=== PATIENT | female | born 1945 | race Caucasian/White ===

== ENCOUNTER 2018-01-15 07:36 | Emergency (ER) | payer MEDICARE ==
--- OUTSIDE RECORDS SUMMARY | 2018-01-15 07:46 | XMS REPORT | Continuity of Care Document ---
:1945 External Reference #:[id number] Author Name Kostas Batista M.D. Address [address] [place] [address] Care Team Providers Name Role Phone Kostas Batista M.D. 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 Payers Type Date Identification Numbers Payment Provider Subscriber Policy Number: [id number] [facility] Medicare Eve Buckley PayID: [id number] [address] [address] [place] [address] Expires: 2015 Policy Number: [id number] Medicaid After Medicare Eve Buckley Group Name: 2 1 [id number] [facility] PayID: [id number] [place] [address] Advance Directives Description No Information Available Problems Description No Active Problems Family History Date Family Member(s) Problem(s) Comments Father Age is Unknown Father Unknown Mother due to Colon Cancer () - AT AGE 41 First Son 48 First Son Throat Cancer Second Son 47 Second Son No Current Problems Third Son 44 Third Son No Current Problems First Daughter 45 First Daughter Diabetes Mellitus Type 1 First Brother due to Liver Disease () - AND LUPUS - AGE 39 First Sister due to Cervical Cancer () - AGE 42 Second Sister 48 Third Sister 52 Social History Type Date Description Comments Sex Unknown Marital Status Legal Status: ETOH Use Denies alcohol use Tobacco Use Start: Unknown Patient is a current smoker, smokes 1 PACK A DAY every day Smoking Status Reviewed: 01/10/18 Patient is a current smoker, smokes 1 PACK A DAY every day Allergies, Adverse Reactions, Alerts Date Description Reaction Status Severity Comments 03/18/2015 NKDA Active 03/18/2015 Z Packs Active Medications Medication Date Status Form Strength Qnty SIG Indications Ordering Provider Miralax 06/30/19 Active Powder 3350NF 1020unit 1-2 caps K59.00 Lester, Ahmad 18 s by mouth M., M.D. every day Lipitor 05/27/19 Active Tablets 10mg 30tabs 1 by mouth E78.2 Lester, Ahmad 18 every day M., M.D. Ibuprofen 10/22/19 Active Tablets 600mg 90tabs take 1 M25.529 Lester, Ahmad 17 tablet by M., M.D. mouth every 8 hours as needed for pain M79.606 M25.569 Hydrocodone-Acetaminophen 08/13/2016 Active Tablets 5-325mg 60tabs 1 tab M25.529 Lester, by Ahmad mouth M., three M.D. times a day M79.606 M25.569 Betamethasone 03/12/2016 Active Cream 0.05% 45gm apply to L20.9 Lester, Dipropionate affected Ahmad area three M., M.D. times a day as needed Albuterol 05/06/2015 Active Nebulizer (2.5mg/3 375ml use with R06.02 Lester, Sulfate ML) nebulizer q4 Ahmad 0.083% hours as M., M.D. needed for cough/sob J44.9 R05 Maxalt 03/18/2015 Active Tablets 10mg 14tabs 1 tab by G43.119 Elster, Ahmad mouth twice a M., M.D. day as needed Doxepin HCL Active Capsules 25mg 180caps 2 cap by G47.00 Lester, Ahmad mouth every M., M.D. day F41.9 F33.[address] 40mg 90caps 1 by mouth Lester, every day Ahmad M., M.D. Bisoprolol Active Tablets 5-6.25mg 90tabs 1 tab by I10 Lester , Fumarate/Hydroc mouth Ahmad M., hlorothiazide every day M.D. Proair HFA Active Aerosol 108(90Bas 25.5gm inhale 2 J44. gideon Batista) puffs by 9 Ahmad M., mcg/Act mouth M.D. every 4 hours if needed R06.02 Keflex Hx Capsules 500mg 30caps 1 by mouth L03.11 Lester 018 - three times a 3 Ahmad M., day M.D. 018 Levofloxacin Hx Tablets 750mg 10tabs 1 by mouth E11.65 Lester 018 - every day Ahmad M., M.D. 018 Prednisone Hx Tablets 20mg 20tabs 2 tab by E11.65 Giselle Batista - mouth daily 4 Ahmad M., days,30x3d,20 M.D. 018 x2d,10x7d Azithromycin Hx Tablets 500mg 7tabs 1 by mouth E11.65 Lester 018 - every day Ahmad M., M.D. 018 Prednisone Hx Tablets 20mg 20tabs 2 tab by E11.65 Lester 018 - mouth daily 4 Ahmad M., days,30x3d,20 M.D. 018 x2d,10x7d Diclofenac Sodium Hx Gel 1% 100gm apply 4 gm to M54.2 Giselle Batista - neck three Ahmad M., 06/09/ times a day M.D. 018 as needed Fentanyl Hx Patches 72HR 25mcg/H 10units 1 patch to M25.56 Gui Batista - R skin every 72 9 Ahmad M., hours M.D. 017 M79.606 M25.512 Gabapentin 08/19/2016 - Hx Capsules 300mg 90caps 1 cap by M25.529 Lester , Ahmad 02/09/2017 mouth every M., M.D. night And 1 bid prn M25.569 M79.606 Prednisone 08/13/2016 - Hx Tablets 20mg 18tabs 3 tab by M25.529 [facility], [facility] daily M., M.D. 3 days, then 2 tab daily x 3 d , then 1 tab daily 3d M79.606 M25.569 Ibuprofen 08/13/2016 - Hx Tablets 200mg 2-4 tab by M25.529 Lester, mad 10/21/2016 mouth every 6 M., M.D. hours as needed M79.606 M25.569 Prednisone 05/18/2016 Hx Tablets 20mg 20tabs 2 tab by mouth daily 4 E11.65 Lester, - days,30x3d,20x2d,10x7d [facility] 06/[facility]2016 Elaina Coffman. Cipro 05/18/2016 Hx Tablets 500mg 30tabs 1 tab by mouth twice a E11.65 Lester, - day mad 06/02/2016 Elaina Coffman. Azithromycin 04/12/2016 Hx Tablets 250mg 6tabs take two tablets by J01.80 Lester, - mouth as one dose [facility] 08[facility]2016 the first day then take M., one daily thereafter x M.D. 4 days Prednisone 04/12/2016 Hx Tablets 10mg 18tabs tab one by mouth three R06.2 Lester, - times a day x 3 days; Ahmad 08/09/2016 tab one by mouth twice M., a day x 3 days; tab one M.D. by mouth every day x 3 days Diflucan 04/12/2016 Hx Tablets 100mg 10tabs 1 by mouth every day x J01.80 Lester, - 10 days [facility]2016 Elaina Coffman. Fluconazole 03/12/2016 Hx Tablets 100mg 20tabs 1 by mouth twice a day B37.0 Lester, - Ahmad 03/22/2016 Elaina Coffman. Cipro 03/02/2016 Hx Tablets 500mg 20tabs 1 tab by mouth twice a E11.65 Lester, - day Ahmad 03/03/2016 Elaina Coffman. Prednisone 02/27/2016 Hx Tablets 20mg 20tabs 2 tab by mouth daily 4 E11.65 Lester, - days,30x3d,20x2d,10x7d Ahmad 03/10/2016 Abril Coffman Augmentin 02/27/2016 Hx Tablets 875-1 20tabs 1 tab by mouth twice a E11.65 Lesetr, - 25mg day Ahmad 03/02/2016 Abril Coffman Dicyclomine 02/27/2016 Hx Capsules 10mg 1 cap by mouth every K51.918 Lester, HCL - day-By GI Kostas 02/09/2017 Abril Coffman K59.00 Asacol HD 10/23/2015 - Hx Tablets DR 800mg 180tabs 1 tab by K58.0 Lester , Kostas 12/30/2015 mouth twice Abril Coffman a day K51.918 Fluconazole 05/12/2015 - Hx Tablets 100mg 14tabs 1 by mouth B37.0 Lester , 08/10/2015 twice a day Kostas Coffman M.D. Augmentin 05/06/2015 - Hx Tablets 875-125m 20tabs 1 tab by mouth E11.65 Lester, 05/15/2015 g twice a day Kostas Coffman M.D. Rocephin 05/06/2015 - Hx Solution 1gm 1 gm mixed with E11.65 Lester, 05/07/2015 Rec 2 cubic Yuemaasya centimeters Abril Coffman lidocaine give intramuscular to l deltoid Solu-Medrol 05/06/2015 - Hx Solution 125mg 1units given iv E11.65 Lester , 05/07/2015 Rec Kostas Coffman M.D. Percocet 05/06/2015 - Hx Tablets 5-325mg 120tabs 1-2 tab by R05 Lester, 08/09/2016 mouth every 4 Ahmad hours as needed Abril Coffman M25.531 M25.512 Doxycycline 04/24/2015 - Hx Capsules 100mg 20caps take 1 Lester Hyclate 04/24/2015 capsule MD Kostas twice a day Doxycycline 04/24/2015 - Hx Capsules 100mg 20caps 1 cap by Lester Hyclate 05/04/2015 mouth twice Juand MBernardino, a day M.D. Prednisone 04/24/2015 - Hx Tablets 20mg 20tabs 2 tab by R06. Lester, 05/19/2015 mouth daily 02 Kostas Coffman, 4 M.D. days,30x3d, 20x2d,10x7d Advair Diskus 04/10/2015 - Hx Aerosol 250-50mcg 60units 1 by mouth J44. [facility], 10/12/2015 /Dose twice a day 9 Kostas Coffman M.D. Fluconazole 04/10/2015 - Hx Tablets 100mg 14tabs 1 by mouth B37. [facility], 04/16/2015 twice a day 0 Kostas Coffman M.D. Tramadol HCL 04/01/2015 - Hx Tablets 50mg 60tabs 1 by mouth M25. Lester, 05/06/2015 every 4 522 Kostas Coffman, hours as M.D. needed M25.531 M25.512 Amoxicillin 04/01/2015 - Hx Tablets 500mg 40tabs 2 by mouth Kostas Batista 04/11/2015 twice a day Abril Coffman Prednisone 04/01/2015 - Hx Tablets 20mg 20tabs 2 tab by [facility]ester, [facility] mouth daily Abril Coffman 4 days,30x3d, 20x2d,10x7d Asacol HD - Hx Tablets DR 800mg Unknown 03/11/2015 Asacol HD - Hx Tablets DR 800mg 180tabs 1 tab by I10 Kostas Batista, 10/23/2015 mouth twice MD a day K30 K58.0 Doxepin HCL - Hx Capsules 25mg Unknown 03/11/2015 Proair HFA - Hx Aerosol 108(90Ba Unknown 03/11/2015 se) mcg/Act Bisoprolol - Hx Tablets 5-6.25mg Unknown Fumarate/Hydrochl 03/11/2015 orothiazide Ondansetron - Hx Tablets 8mg dissolve 1 Unknown 03/11/2015 Dispers tablet On Tongue if needed for nausea -To Take Before Colon Ondansetron - Hx Tablets 8mg Unknown 03/11/2015 Dispers Omeprazole - Hx Capsules DR 40mg Unknown 03/11/2015 Doxycycline - Hx Capsules 100mg take 1 Unknown Hyclate 03/11/2015 capsule twice a day Doxycycline - Hx Capsules 100mg Unknown Hyclate 03/11/2015 Mupirocin - Hx Ointment 2% apply three Unknown 03/11/2015 times a day for 1 week Mupirocin - Hx Ointment 2% Unknown 03/11/2015 Fluorouracil - Hx Cream 5% Unknown 03/11/2015 Fluorouracil - Hx Cream 5% apply Small Unknown 03/11/2015 Amount To Left Hand twice a day for 4 Weeks. Wash Off In T Amoxicillin/Clavu - Hx Tablets 875-125m take 1 Unknown lanate Potassium 03/11/2015 g tablet by mouth twice a day for 10 days Amoxicillin/Clavu - Hx Tablets 875-125m Unknown lanate Potassium 03/11/2015 g Cephalexin - Hx Capsules 500mg Unknown 03/11/2015 Cephalexin - Hx Capsules 500mg take 1 Unknown 03/11/2015 capsule three times a day Ondansetron - Hx Tablets 4mg dissolve 1 Unknown 03/11/2015 Dispers tablet On Tongue every 8 hours if needed for vomiting Ondansetron - Hx Tablets 4mg Unknown 03/11/2015 Dispers Tramadol HCL - Hx Tablets 50mg take 1 Unknown 03/11/2015 tablet every 4 to 6 hours if needed for pain Tramadol HCL - Hx Tablets 50mg Unknown 03/11/2015 Hydrocodone-Aceta - Hx Tablets 5-325mg Unknown minophen 03/11/2015 Hydrocodone-Aceta - Hx Tablets 5-325mg 120t take 1 M25. Lester, minophen 04/01/2015 abs tablet every 522 Ahmad M., 6 hours if M.D. needed for pain M25.531 M25.512 Clotrimazole/Betamethasone - Hx Cream 1-0.05% apply twice Unknown Dipropionate 03/11/2015 a day to Affected Skin Clotrimazole/Betamethasone - Hx Cream 1-0.05% Unknown Dipropionate 03/11/2015 Clobetasol Propionate - Hx Ointment 0.05% Unknown 03/11/2015 Clobetasol Propionate - Hx Ointment 0.05% apply twice Unknown 03/11/2015 a day for 2 Weeks Then Take A Break Immunizations CPT Code Status Date Vaccine Lot # [id number] Given 01/10/2018 Flu Vaccine 3+Yrs Old(Fluzone) [id number] Q2038 Given 12/23/2016 Flu Vaccine 3+Yrs Old(Fluzone) [id number] [id number] Given 12/23/2016 Pneumococcal Conjugate Vaccine 13 Valent For [id number] Intramuscular Use Q2038 Given 03/25/2015 Flu Vaccine 3+Yrs Old(Fluzone) 33485 Given 03/25/2015 Flu Vaccine [id number] Given 01/28/2014 Pneumovax Vital Signs Date Vital Result Comment 01/10/2018 2:04pm BP Systolic 128 mmHg BP Diastolic 62 mmHg Height 63 inches 5'3" Weight 127.00 lb BMI (Body Mass Index) 22.5 kg/m2 Heart Rate 77 /min Respiratory Rate 14 /min 12/06/2017 1:06pm BP Systolic 124 mmHg BP Diastolic 62 mmHg Height 63 inches 5'3" Weight 126.00 lb BMI (Body Mass Index) 22.3 kg/m2 Heart Rate 70 /min Respiratory Rate 16 /min 12/01/2017 1:06pm BP Systolic 128 mmHg BP Diastolic 78 mmHg Height 63 inches 5'3" Weight 128.00 lb BMI (Body Mass Index) 22.7 kg/m2 Respiratory Rate 14 /min 09/15/2017 4:47pm BP Systolic 134 mmHg BP Diastolic 82 mmHg Height 63 inches 5'3" Weight 132.00 lb BMI (Body Mass Index) 23.4 kg/m2 Heart Rate 74 /min Respiratory Rate 18 /min 07/18/2017 9:24am BP Systolic 130 mmHg BP Diastolic 78 mmHg Height 63 inches 5'3" Weight 130.00 lb BMI (Body Mass Index) 23.0 kg/m2 Heart Rate 76 /min Respiratory Rate 18 /min 06/29/2017 10:13am BP Systolic 118 mmHg BP Diastolic 70 mmHg Height 63 inches 5'3" Weight 130.00 lb BMI (Body Mass Index) 23.0 kg/m2 Heart Rate 65 /min Body Temperature 96.7 F Respiratory Rate 18 /min 06/21/2017 12:59pm BP Systolic 140 mmHg BP Diastolic 68 mmHg Height 63 inches 5'3" Weight 128.00 lb BMI (Body Mass Index) 22.7 kg/m2 Heart Rate 72 /min Respiratory Rate 18 /min 05/27/2017 9:59am BP Systolic 132 mmHg BP Diastolic 80 mmHg Height 63 inches 5'3" Weight 128.00 lb BMI (Body Mass Index) 22.7 kg/m2 Heart Rate 73 /min Respiratory Rate 18 /min 05/18/2017 8:53am BP Systolic 134 mmHg BP Diastolic 62 mmHg Height 63 inches 5'3" Weight 128.00 lb BMI (Body Mass Index) 22.7 kg/m2 Heart Rate 62 /min Respiratory Rate 18 /min 05/10/2017 11:02am BP Systolic 142 mmHg BP Diastolic 80 mmHg Height 63 inches 5'3" Weight 127.00 lb BMI (Body Mass Index) 22.5 kg/m2 Heart Rate 76 /min Body Temperature 96.9 F Respiratory Rate 18 /min 04/19/2017 9:05am BP Systolic 126 mmHg BP Diastolic 68 mmHg Height 63 inches 5'3" Weight 124.00 lb BMI (Body Mass Index) 22.0 kg/m2 Heart Rate 82 /min Respiratory Rate 18 /min 03/10/2017 2:30pm BP Systolic 116 mmHg BP Diastolic 62 mmHg Height 63 inches 5'3" Weight 127.00 lb BMI (Body Mass Index) 22.5 kg/m2 Heart Rate 83 /min Respiratory Rate 18 /min 02/25/2017 8:30am BP Systolic 130 mmHg BP Diastolic 72 mmHg Height 63 inches 5'3" Weight 125.00 lb BMI (Body Mass Index) 22.1 kg/m2 Heart Rate 81 /min Respiratory Rate 16 /min 02/22/2017 3:15pm BP Systolic 130 mmHg BP Diastolic 70 mmHg Height 63 inches 5'3" Weight 128.00 lb BMI (Body Mass Index) 22.7 kg/m2 Heart Rate 71 /min Respiratory Rate 16 /min 12/23/2016 10:51am BP Systolic 126 mmHg BP Diastolic 68 mmHg Height 63 inches 5'3" Weight 133.00 lb BMI (Body Mass Index) 23.6 kg/m2 Heart Rate 71 /min Respiratory Rate 16 /min 10/21/2016 2:06pm BP Systolic 132 mmHg BP Diastolic 68 mmHg Height 63 inches 5'3" Weight 133.00 lb BMI (Body Mass Index) 23.6 kg/m2 Heart Rate 72 /min Respiratory Rate 16 /min 08/24/2016 8:45am BP Systolic 122 mmHg BP Diastolic 64 mmHg Height 63 inches 5'3" Weight 137.00 lb BMI (Body Mass Index) 24.3 kg/m2 Heart Rate 78 /min Respiratory Rate 16 /min 08/20/2016 9:10am BP Systolic 108 mmHg BP Diastolic 60 mmHg Height 63 inches 5'3" Weight 135.00 lb BMI (Body Mass Index) 23.9 kg/m2 Heart Rate 62 /min Respiratory Rate 16 /min 08/19/2016 9:14am BP Systolic 142 mmHg BP Diastolic 72 mmHg Height 63 inches 5'3" Weight 135.00 lb BMI (Body Mass Index) 23.9 kg/m2 Heart Rate 56 /min Respiratory Rate 16 /min 08/13/2016 9:24am BP Systolic 140 mmHg BP Diastolic 80 mmHg Height 63 inches 5'3" Weight 137.00 lb BMI (Body Mass Index) 24.3 kg/m2 Heart Rate 74 /min 05/18/2016 11:13am BP Systolic 132 mmHg BP Diastolic 88 mmHg Height 63 inches 5'3" Weight 132.00 lb BMI (Body Mass Index) 23.4 kg/m2 Heart Rate 95 /min Respiratory Rate 16 /min 04/12/2016 9:45am BP Systolic 138 mmHg BP Diastolic 70 mmHg Height 63 inches 5'3" Weight 132.00 lb BMI (Body Mass Index) 23.4 kg/m2 Heart Rate 83 /min Respiratory Rate 18 /min 03/16/2016 1:43pm BP Systolic 102 mmHg BP Diastolic 68 mmHg Height 63 inches 5'3" Weight 131.00 lb BMI (Body Mass Index) 23.2 kg/m2 Heart Rate 91 /min Respiratory Rate 18 /min 03/12/2016 2:18pm BP Systolic 128 mmHg BP Diastolic 58 mmHg Height 63 inches 5'3" Weight 133.00 lb BMI (Body Mass Index) 23.6 kg/m2 Heart Rate 80 /min Respiratory Rate 18 /min 02/27/2016 4:09pm BP Systolic 122 mmHg BP Diastolic 68 mmHg Height 63 inches 5'3" Weight 132.00 lb BMI (Body Mass Index) 23.4 kg/m2 Heart Rate 74 /min Respiratory Rate 18 /min 01/02/2016 3:24pm BP Systolic 118 mmHg BP Diastolic 70 mmHg Height 63 inches 5'3" Weight 135.00 lb BMI (Body Mass Index) 23.9 kg/m2 Heart Rate 58 /min Respiratory Rate 18 /min 12/05/2015 8:41am BP Systolic 106 mmHg BP Diastolic 62 mmHg Height 63 inches 5'3" Weight 132.00 lb BMI (Body Mass Index) 23.4 kg/m2 Heart Rate 78 /min Respiratory Rate 18 /min 10/23/2015 3:27pm BP Systolic 120 mmHg BP Diastolic 60 mmHg Height 63 inches 5'3" Weight 143.00 lb BMI (Body Mass Index) 25.3 kg/m2 Heart Rate 78 /min Respiratory Rate 19 /min 08/13/2015 2:48pm BP Systolic 127 mmHg BP Diastolic 70 mmHg Height 63 inches 5'3" Weight 144.00 lb BMI (Body Mass Index) 25.5 kg/m2 Heart Rate 86 /min Respiratory Rate 18 /min 05/19/2015 10:51am BP Systolic 118 mmHg BP Diastolic 79 mmHg Height 63 inches 5'3" Weight 141.00 lb BMI (Body Mass Index) 25.0 kg/m2 Heart Rate 92 /min Respiratory Rate 18 /min 05/06/2015 2:34pm BP Systolic 150 mmHg BP Diastolic 79 mmHg Height 63 inches 5'3" Weight 144.00 lb BMI (Body Mass Index) 25.5 kg/m2 Heart Rate 90 /min Body Temperature 97.0 F Respiratory Rate 18 /min 04/24/2015 9:27am BP Systolic 121 mmHg BP Diastolic 80 mmHg Height 63 inches 5'3" Weight 143.00 lb BMI (Body Mass Index) 25.3 kg/m2 Heart Rate 79 /min Body Temperature 96.1 F Respiratory Rate 18 /min 04/10/2015 11:43am BP Systolic 128 mmHg BP Diastolic 76 mmHg Height 63 inches 5'3" Weight 140.00 lb BMI (Body Mass Index) 24.8 kg/m2 Heart Rate 64 /min Body Temperature 97.0 F Respiratory Rate 18 /min 04/01/2015 9:11am BP Systolic 105 mmHg BP Diastolic 64 mmHg Height 63 inches 5'3" Weight 139.00 lb BMI (Body Mass Index) 24.6 kg/m2 Heart Rate 75 /min Body Temperature 97.1 F Respiratory Rate 20 /min 03/25/2015 9:01am BP Systolic 121 mmHg BP Diastolic 71 mmHg Height 63 inches 5'3" Weight 139.00 lb BMI (Body Mass Index) 24.6 kg/m2 Heart Rate 73 /min Respiratory Rate 18 /min 03/18/2015 2:51pm BP Systolic 129 mmHg BP Diastolic 75 mmHg Height 63 inches 5'3" Weight 141.00 lb BMI (Body Mass Index) 25.0 kg/m2 Heart Rate 85 /min Body Temperature 96.6 F Respiratory Rate 18 /min Results Test Date Facility Test Result H/L Range Note Basic Metabolic Panel 06/14/2017 [facility] Glucose 150 mg/dL High 74-106 1 BUN 9 mg/dL 7-18 Creatinine 0.9 mg/dL 0.6-1.3 Glom Filtration Rate, Estimate >60 mL/min >60 If >60 mL/min >60 2 BUN/Creat 10.0 ratio Sodium 146 mmol/L High 136-145 Potassium 3.6 mmol/L 3.5-5.1 Chloride 119 mmol/L High 98-107 Carbon Dioxide 17 mmol/L Low 21-32 Anion Gap 10 mEq/L 8-16 Calcium 8.0 mg/dL Low 8.5-10.1 CBS W/Automated Diff 06/14/2017 [facility] White Blood Count 13.0 K/uL High 3.1-10.7 Red Blood Count 3.97 M/uL 3.90-5.40 Hemoglobin 12.3 gm/dL 11.6-15.8 Hematocrit 36.2 % 36.0-46.1 Mean Cell Volume 90.2 fl 80.9-99.0 Mean Corpuscular HGB 31.0 pg 25.9-32.7 Mean Corpuscular HGB Conc 34.4 g/dL High 30.8-34.3 Platelet Count 141 K/uL Low 155-360 Red Cell Distri Width SD 42.1 fl 3-47 Red Cell Distri Width %CV 13.0 % 11.7-14.4 Mean Platelet Volume 11.8 fL 8.9-12.4 Neut% 90.2 % High 40.4-72.8 Lymph % 7.8 % Low 20.0-42.0 Loup % 2.0 % Low 4.3-13.2 Eo% 0.0 % 0.0-6.6 Bas% 0.0 % 0.0-1.1 Neut# 11.68 K/uL High 1.8-7.0 Lymph # 1.01 K/uL 1.0-4.0 Loup # 0.26 K/uL Low 0.3-0.9 Eos # 0.00 K/uL 0.0-0.5 Baso # 0.00 K/uL 0.0-0.1 Basic Metabolic Panel 06/14/2017 [facility] Glucose 126 mg/dL High 74-106 BUN 9 mg/dL 7-18 Creatinine 0.7 mg/dL 0.6-1.3 Glom Filtration Rate, Estimate >60 mL/min >60 If >60 mL/min >60 3 BUN/Creat 12.8 ratio Sodium 144 mmol/L 136-145 Potassium 4.0 mmol/L 3.5-5.1 Chloride 117 mmol/L High 98-107 Carbon Dioxide 19 mmol/L Low 21-32 Anion Gap 8 mEq/L 8-16 Calcium 8.0 mg/dL Low 8.5-10.1 Blood Culture 06/13/2017 [facility] Blood Culture Aerobic NO GROWTH: FINAL < SEE 4 NOTE> Blood Culture Anaerobic NO GROWTH: FINAL <SEE NOTE> 5 Lactic Acid 06/13/2017 [facility] Lactic Acid 2.6 mmol/L High 0.4-1.9 6 Lab Reflex >2.0 for Sepsis? Y Influenza A/B 06/13/2017 [facility] Influenza A Antigen Negative (Negative ) Antigen Influenza B Antigen Negative (Negative) 7 Blood Culture 06/13/2017 [facility] Blood Culture Aerobic NO GROWTH: FINAL < SEE 8, 9 NOTE> Blood Culture Anaerobic NO GROWTH: FINAL <SEE NOTE> 10 Streptococcus Pneumoniae Ag,Ur 06/13/2017 [facility] Specimen Source Urine . Streptococcus Pneumoniae Ag,Ur NEGATIVE Negative Body Fluid Culture, Sterile Not Indicated . Organism Id Not indicated. . Please Note: (SEE NOTE) 11 Urine Culture 06/13/2017 [facility] Urine Culture MIXED URETHRAL F <SEE NOTE > 12 Quantity 10,000 - 50,000 <SEE NOTE> 13 Laboratory test 06/13/2017 [facility] Legionella Negative Negative 14 finding Urinary Antigen Legionella 06/13/2017 [facility] Legionella No Legionella sp 15 Culture Culture <SEE NOTE> Laboratory test 06/13/2017 [facility] Lactic Acid 4.3 mmol/L High 0.4-1.9 16 finding Lactic Acid 06/13/2017 [facility] Lactic Acid 4.2 mmol/L High 0.4-1.9 Lab Reflex >2.0 for Sepsis? Y Laboratory test finding 06/13/2017 [facility] Lactic Acid 3.9 mmol/L High 0.4-1.9 Lactic Acid 06/13/2017 [facility] Lactic Acid 1.2 mmol/L 0.4-1.9 Lab Reflex >2.0 for Sepsis? Y Laboratory test 05/18/2017 [facility] Erythrocyte Sed Rate 4 mm/Hr 0 -40 17 finding Vitamin D Total 25(Oh) 34.5 ng/mL 20-50 18 Lipid Profile 05/18/2017 [facility] Triglycerides 168 mg/dL 19 (Trig/Chol/HDL) Cholesterol 239 mg/dL 20 HDL Cholesterol 50.0 mg/dL 21 LDL Cholesterol 155 mg/dL 22 Laboratory test 05/18/2017 [facility] Hemoglobin A1c 5.9 % High 4.0- 5.6 23 finding (Glyco HGB) TSH (Thyroid Stim Horm) 0.64 mcIU/mL 0.34-5.60 24 Comp Metabolic Panel 05/18/2017 [facility] Sodium 138 mmol/L 133- 145 Potassium 3.9 mmol/L 3.5-5.0 Chloride 103 mmol/L 101-111 Co2 Carbon Dioxide 29 mmol/L 22-32 Anion Gap 6 mmol/L 2-11 Glucose 76 mg/dL 70-100 Blood Urea Nitrogen 16 mg/dL 6-24 Creatinine 1.21 mg/dL High 0.51-0.95 BUN/Creatinine Ratio 13.2 8-20 Calcium 9.5 mg/dL 8.6-10.3 Total Protein 6.4 g/dL 6.4-8.9 Albumin 4.1 g/dL 3.2-5.2 Globulin 2.3 g/dL 2-4 Albumin/Globulin Ratio 1.8 1-3 Total Bilirubin 0.60 mg/dL 0.2-1.0 Alkaline Phosphatase 63 U/L 34-104 Alt 15 U/L 7-52 Ast 13 U/L 13-39 Egfr Non- 44.1 >60 Egfr 56.7 >60 25 CBC Auto Diff 05/18/2017 [facility] White Blood 14.7 10^3/uL High 3.5 -10.8 Count Red Blood Count 4.80 10^6/uL 4.0-5.4 Hemoglobin 14.6 g/dL 12.0-16.0 Hematocrit 44 % 35-47 Mean Corpuscular Volume 93 fL 80-97 Mean Corpuscular Hemoglobin 31 pg 27-31 Mean Corpuscular HGB Conc 33 g/dL 31-36 Red Cell Distribution Width 14 % 10.5-15 Platelet Count 191 10^3/uL 150-450 Mean Platelet Volume 11 um3 High 7.4-10.4 Giant Platelets Present Abs Neutrophils 11.0 10^3/uL High 1.5-7.7 Abs Lymphocytes 2.7 10^3/uL 1.0-4.8 Abs Monocytes 0.8 10^3/uL 0-0.8 Abs Eosinophils 0 10^3/uL 0-0.6 Abs Basophils 0.1 10^3/uL 0-0.2 Abs Nucleated RBC 0 10^3/uL Granulocyte % 75.2 % 38-83 Lymphocyte % 18.5 % Low 25-47 Monocyte % 5.5 % 1-9 Eosinophil % 0.3 % 0-6 Basophil % 0.5 % 0-2 Nucleated Red Blood Cells % 0.1 CBC Auto Diff 02/25/2017 [facility] White Blood Count 7.5 10^3/uL 3.5-10.8 Red Blood Count 4.92 10^6/uL 4.0-5.4 Hemoglobin 14.8 g/dL 12.0-16.0 Hematocrit 45 % 35-47 Mean Corpuscular Volume 91 fL 80-97 Mean Corpuscular Hemoglobin 30 pg 27-31 Mean Corpuscular HGB Conc 33 g/dL 31-36 Red Cell Distribution Width 13 % 10.5-15 Platelet Count 200 10^3/uL 150-450 Mean Platelet Volume 11 um3 High 7.4-10.4 Abs Neutrophils 4.0 10^3/uL 1.5-7.7 Abs Lymphocytes 2.6 10^3/uL 1.0-4.8 Abs Monocytes 0.5 10^3/uL 0-0.8 Abs Eosinophils 0.3 10^3/uL 0-0.6 Abs Basophils 0.1 10^3/uL 0-0.2 Abs Nucleated RBC 0.01 10^3/uL Granulocyte % 53.2 % 38-83 Lymphocyte % 34.5 % 25-47 Monocyte % 6.9 % 1-9 Eosinophil % 3.6 % 0-6 Basophil % 1.8 % 0-2 Nucleated Red Blood Cells % 0.1 Comp Metabolic Panel 02/25/2017 [facility] Sodium 141 mmol/L 133- 145 Potassium 3.8 mmol/L 3.5-5.0 Chloride 109 mmol/L 101-111 Co2 Carbon Dioxide 25 mmol/L 22-32 Anion Gap 7 mmol/L 2-11 Glucose 84 mg/dL 70-100 Blood Urea Nitrogen 10 mg/dL 6-24 Creatinine 1.09 mg/dL High 0.51-0.95 BUN/Creatinine Ratio 9.2 8-20 Calcium 9.6 mg/dL 8.6-10.3 Total Protein 6.4 g/dL 6.4-8.9 Albumin 4.0 g/dL 3.2-5.2 Globulin 2.4 g/dL 2-4 Albumin/Globulin Ratio 1.7 1-3 Total Bilirubin 0.60 mg/dL 0.2-1.0 Alkaline Phosphatase 72 U/L 34-104 Alt 13 U/L 7-52 Ast 15 U/L 13-39 Egfr Non- 49.8 >60 Egfr 64.0 >60 26 Laboratory test 02/25/2017 [facility] Hemoglobin A1c 5.6 % 4.0-5.6 27 finding (Glyco HGB) TSH (Thyroid Stim Horm) 1.25 mcIU/mL 0.34-5.60 28 Lipid Profile 02/25/2017 [facility] Triglycerides 193 mg/dL 29 (Trig/Chol/HDL) Cholesterol 238 mg/dL 30 HDL Cholesterol 35.4 mg/dL 31 LDL Cholesterol 164 mg/dL 32 Laboratory test 02/25/2017 [facility] Vitamin D 29.3 ng/mL 20-50 33 finding Total 25(Oh) Marisol Chavis 08/20/2016 [facility] Ebv Capsid Ag Negative Negative Comprehensive IgG Ab Ebv Capsid Ag IgM Ab Negative Negative Marisol-Chavis Nuclear Antigen Positive Negative Marisol-Chavis Virus Interp See Comment 34 CBC Auto Diff 08/20/2016 [facility] White Blood 16.9 10^3/uL High 3.5 -10.8 Count Red Blood Count 4.90 10^6/uL 4.0-5.4 Hemoglobin 14.7 g/dL 12.0-16.0 Hematocrit 45 % 35-47 Mean Corpuscular Volume 92 fL 80-97 Mean Corpuscular Hemoglobin 30 pg 27-31 Mean Corpuscular HGB Conc 33 g/dL 31-36 Red Cell Distribution Width 13 % 10.5-15 Platelet Count 189 10^3/uL 150-450 Mean Platelet Volume 11 um3 High 7.4-10.4 Abs Neutrophils 10.1 10^3/uL High 1.5-7.7 Abs Lymphocytes 5.4 10^3/uL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 disease, unspecified K51.918 Ulcerative colitis, unspecified with other complication K30 Functional dyspepsia F33.9 Major depressive disorder, recurrent, unspecified K58.0 Irritable bowel syndrome with diarrhea G43.119 Migraine with aura, intractable, without status migrainosus F17.210 Nicotine dependence, cigarettes, uncomplicated H52.4 Presbyopia M25.512 Pain in left shoulder M25.522 Pain in left elbow M25.531 Pain in right wrist M79.645 Pain in left finger(s) M54.5 Low back pain L20.9 Atopic dermatitis, unspecified G47.00 Insomnia, unspecified F41.9 Anxiety disorder, unspecified H90.3 Sensorineural hearing loss, bilateral M25.551 Pain in right hip R05 Cough R09.81 Nasal congestion R06.02 Shortness of breath M79.606 Pain in leg, unspecified M25.569 Pain in unspecified knee K21.0 Gastro-esophageal reflux disease with esophagitis J30.9 Allergic rhinitis, unspecified M25.529 Pain in unspecified elbow R06.2 Wheezing R53.83 Other fatigue M45.0 Ankylosing spondylitis of multiple sites in spine M79.7 Fibromyalgia E55.9 Vitamin D deficiency, unspecified B07.9 Viral wart, unspecified M54.2 Cervicalgia R10.30 Lower abdominal pain, unspecified K59.00 Constipation, unspecified R11.0 Nausea H61.20 Impacted cerumen, unspecified ear Office Visit 06/29/2017 11:15a [facility] Kostas Batista [id number] Type 2 diabetes Abril Coffman mellitus with hyperglycemia I10 Essential (primary) hypertension E78.2 Mixed hyperlipidemia J44.9 Chronic obstructive pulmonary disease, unspecified K51.918 Ulcerative colitis, unspecified with other complication K30 Functional dyspepsia F33.9 Major depressive disorder, recurrent, unspecified K58.0 Irritable bowel syndrome with diarrhea G43.119 Migraine with aura, intractable, without status migrainosus F17.210 Nicotine dependence, cigarettes, uncomplicated H52.4 Presbyopia M25.512 Pain in left shoulder M25.522 Pain in left elbow M25.531 Pain in right wrist M79.645 Pain in left finger(s) M54.5 Low back pain L20.9 Atopic dermatitis, unspecified G47.00 Insomnia, unspecified F41.9 Anxiety disorder, unspecified H90.3 Sensorineural hearing loss, bilateral M25.551 Pain in right hip R05 Cough R09.81 Nasal congestion R06.02 Shortness of breath M79.606 Pain in leg, unspecified M25.569 Pain in unspecified knee K21.0 Gastro-esophageal reflux disease with esophagitis J30.9 Allergic rhinitis, unspecified M25.529 Pain in unspecified elbow R06.2 Wheezing R53.83 Other fatigue M45.0 Ankylosing spondylitis of multiple sites in spine M79.7 Fibromyalgia E55.9 Vitamin D deficiency, unspecified B07.9 Viral wart, unspecified M54.2 Cervicalgia R10.30 Lower abdominal pain, unspecified K59.00 Constipation, unspecified R11.0 Nausea J18.9 Pneumonia, unspecified organism Office Visit 06/21/2017 1:00p [facility] LesterKostas mariscal [id number] Type 2 diabetes Abril Coffman mellitus with hyperglycemia I10 Essential (primary) hypertension E78.2 Mixed hyperlipidemia J44.9 Chronic obstructive pulmonary disease, unspecified K51.918 Ulcerative colitis, unspecified with other complication K30 Functional dyspepsia F33.9 Major depressive disorder, recurrent, unspecified K58.0 Irritable bowel syndrome with diarrhea G43.119 Migraine with aura, intractable, without status migrainosus F17.210 Nicotine dependence, cigarettes, uncomplicated H52.4 Presbyopia M25.512 Pain in left shoulder M25.522 Pain in left elbow M25.531 Pain in right wrist M79.645 Pain in left finger(s) M54.5 Low back pain L20.9 Atopic dermatitis, unspecified G47.00 Insomnia, unspecified F41.9 Anxiety disorder, unspecified H90.3 Sensorineural hearing loss, bilateral M25.551 Pain in right hip R05 Cough R09.81 Nasal congestion R06.02 Shortness of breath M79.606 Pain in leg, unspecified M25.569 Pain in unspecified knee K21.0 Gastro-esophageal reflux disease with esophagitis J30.9 Allergic rhinitis, unspecified M25.529 Pain in unspecified elbow R06.2 Wheezing R53.83 Other fatigue M45.0 Ankylosing spondylitis of multiple sites in spine M79.7 Fibromyalgia E55.9 Vitamin D deficiency, unspecified B07.9 Viral wart, unspecified M54.2 Cervicalgia R10.30 Lower abdominal pain, unspecified K59.00 Constipation, unspecified R11.0 Nausea J18.9 Pneumonia, unspecified organism Office Visit 05/27/2017 10:00a [facility] LesterKostas mariscal [id number] Type 2 diabetes Abril Coffman mellitus with hyperglycemia I10 Essential (primary) hypertension E78.2 Mixed hyperlipidemia J44.9 Chronic obstructive pulmonary disease, unspecified K51.918 Ulcerative colitis, unspecified with other complication K30 Functional dyspepsia F33.9 Major depressive disorder, recurrent, unspecified K58.0 Irritable bowel syndrome with diarrhea G43.119 Migraine with aura, intractable, without status migrainosus F17.210 Nicotine dependence, cigarettes, uncomplicated H52.4 Presbyopia M25.512 Pain in left shoulder M25.522 Pain in left elbow M25.531 Pain in right wrist M79.645 Pain in left finger(s) M54.5 Low back pain L20.9 Atopic dermatitis, unspecified G47.00 Insomnia, unspecified F41.9 Anxiety disorder, unspecified H90.3 Sensorineural hearing loss, bilateral M25.551 Pain in right hip R05 Cough R09.81 Nasal congestion R06.02 Shortness of breath M79.606 Pain in leg, unspecified M25.569 Pain in unspecified knee K21.0 Gastro-esophageal reflux disease with esophagitis J30.9 Allergic rhinitis, unspecified M25.529 Pain in unspecified elbow R06.2 Wheezing R53.83 Other fatigue M45.0 Ankylosing spondylitis of multiple sites in spine M79.7 Fibromyalgia E55.9 Vitamin D deficiency, unspecified B07.9 Viral wart, unspecified M54.2 Cervicalgia R10.30 Lower abdominal pain, unspecified K59.00 Constipation, unspecified R11.0 Nausea Office Visit 05/18/2017 8:45a [facility] LesterKostas mariscal E11.65 Type 2 diabetes Abril Coffman mellitus with hyperglycemia I10 Essential (primary) hypertension E78.2 Mixed hyperlipidemia J44.9 Chronic obstructive pulmonary disease, unspecified K51.918 Ulcerative colitis, unspecified with other complication K30 Functional dyspepsia F33.9 Major depressive disorder, recurrent, unspecified K58.0 Irritable bowel syndrome with diarrhea G43.119 Migraine with aura, intractable, without status migrainosus F17.210 Nicotine dependence, cigarettes, uncomplicated H52.4 Presbyopia M25.512 Pain in left shoulder M25.522 Pain in left elbow M25.531 Pain in right wrist M79.645 Pain in left finger(s) M54.5 Low back pain L20.9 Atopic dermatitis, unspecified G47.00 Insomnia, unspecified F41.9 Anxiety disorder, unspecified H90.3 Sensorineural hearing loss, bilateral M25.551 Pain in right hip R05 Cough R09.81 Nasal congestion R06.02 Shortness of breath M79.606 Pain in leg, unspecified M25.569 Pain in unspecified knee K21.0 Gastro-esophageal reflux disease with esophagitis J30.9 Allergic rhinitis, unspecified M25.529 Pain in unspecified elbow R06.2 Wheezing R53.83 Other fatigue M45.0 Ankylosing spondylitis of multiple sites in spine M79.7 Fibromyalgia E55.9 Vitamin D deficiency, unspecified B07.9 Viral wart, unspecified M54.2 Cervicalgia R10.30 Lower abdominal pain, unspecified K59.00 Constipation, unspecified R11.0 Nausea J20.9 Acute bronchitis, unspecified J01.40 Acute pansinusitis, unspecified Office Visit 05/10/2017 11:15a [facility] Lester, Juanasya [id number] Type 2 diabetes Abril Coffman mellitus with hyperglycemia I10 Essential (primary) hypertension E78.2 Mixed hyperlipidemia J44.9 Chronic obstructive pulmonary disease, unspecified K51.918 Ulcerative colitis, unspecified with other complication K30 Functional dyspepsia F33.9 Major depressive disorder, recurrent, unspecified K58.0 Irritable bowel syndrome with diarrhea G43.119 Migraine with aura, intractable, without status migrainosus F17.210 Nicotine dependence, cigarettes, uncomplicated H52.4 Presbyopia M25.512 Pain in left shoulder M25.522 Pain in left elbow M25.531 Pain in right wrist M79.645 Pain in left finger(s) M54.5 Low back pain L20.9 Atopic dermatitis, unspecified G47.00 Insomnia, unspecified F41.9 Anxiety disorder, unspecified H90.3 Sensorineural hearing loss, bilateral M25.551 Pain in right hip R05 Cough R09.81 Nasal congestion R06.02 Shortness of breath M79.606 Pain in leg, unspecified M25.569 Pain in unspecified knee K21.0 Gastro-esophageal reflux disease with esophagitis J30.9 Allergic rhinitis, unspecified M25.529 Pain in unspecified elbow R06.2 Wheezing R53.83 Other fatigue M45.0 Ankylosing spondylitis of multiple sites in spine M79.7 Fibromyalgia E55.9 Vitamin D deficiency, unspecified B07.9 Viral wart, unspecified M54.2 Cervicalgia R10.30 Lower abdominal pain, unspecified K59.00 Constipation, unspecified R11.0 Nausea J20.9 Acute bronchitis, unspecified J01.40 Acute pansinusitis, unspecified Office Visit 04/19/2017 9:15a [facility] Kostas Batista [id number] Type 2 diabetes Abril Coffman mellitus with hyperglycemia I10 Essential (primary) hypertension E78.2 Mixed hyperlipidemia J44.9 Chronic obstructive pulmonary disease, unspecified K51.918 Ulcerative colitis, unspecified with other complication K30 Functional dyspepsia F33.9 Major depressive disorder, recurrent, unspecified K58.0 Irritable bowel syndrome with diarrhea G43.119 Migraine with aura, intractable, without status migrainosus F17.210 Nicotine dependence, cigarettes, uncomplicated H52.4 Presbyopia M25.512 Pain in left shoulder M25.522 Pain in left elbow M25.531 Pain in right wrist M79.645 Pain in left finger(s) M54.5 Low back pain L20.9 Atopic dermatitis, unspecified G47.00 Insomnia, unspecified F41.9 Anxiety disorder, unspecified H90.3 Sensorineural hearing loss, bilateral M25.551 Pain in right hip R05 Cough R09.81 Nasal congestion R06.02 Shortness of breath M79.606 Pain in leg, unspecified M25.569 Pain in unspecified knee K21.0 Gastro-esophageal reflux disease with esophagitis J30.9 Allergic rhinitis, unspecified M25.529 Pain in unspecified elbow R06.2 Wheezing R53.83 Other fatigue M45.0 Ankylosing spondylitis of multiple sites in spine M79.7 Fibromyalgia E55.9 Vitamin D deficiency, unspecified B07.9 Viral wart, unspecified M54.2 Cervicalgia R10.30 Lower abdominal pain, unspecified K59.00 Constipation, unspecified R11.0 Nausea Office Visit 03/10/2017 2:30p [facility] LesterKostas mariscal [id number] Type 2 diabetes Elaina Coffman. mellitus with hyperglycemia I10 Essential (primary) hypertension E78.2 Mixed hyperlipidemia J44.9 Chronic obstructive pulmonary disease, unspecified K51.918 Ulcerative colitis, unspecified with other complication K30 Functional dyspepsia F33.9 Major depressive disorder, recurrent, unspecified K58.0 Irritable bowel syndrome with diarrhea K59.00 Constipation, unspecified G43.119 Migraine with aura, intractable, without status migrainosus F17.210 Nicotine dependence, cigarettes, uncomplicated H52.4 Presbyopia M25.512 Pain in left shoulder M25.522 Pain in left elbow M25.531 Pain in right wrist M79.645 Pain in left finger(s) M54.5 Low back pain L20.9 Atopic dermatitis, unspecified G47.00 Insomnia, unspecified F41.9 Anxiety disorder, unspecified H90.3 Sensorineural hearing loss, bilateral M25.551 Pain in right hip R05 Cough R09.81 Nasal congestion R06.02 Shortness of breath M79.606 Pain in leg, unspecified M25.569 Pain in unspecified knee K21.0 Gastro-esophageal reflux disease with esophagitis J30.9 Allergic rhinitis, unspecified M25.529 Pain in unspecified elbow R06.2 Wheezing R53.83 Other fatigue M79.7 Fibromyalgia M45.0 Ankylosing spondylitis of multiple sites in spine E55.9 Vitamin D deficiency, unspecified B07.9 Viral wart, unspecified Office Visit 02/25/2017 8:30a [facility] Juan Batistaasya E11.65 Type 2 diabetes Abril Coffman mellitus with hyperglycemia I10 Essential (primary) hypertension E78.2 Mixed hyperlipidemia J44.9 Chronic obstructive pulmonary disease, unspecified K51.918 Ulcerative colitis, unspecified with other complication K30 Functional dyspepsia F33.9 Major depressive disorder, recurrent, unspecified K58.0 Irritable bowel syndrome with diarrhea K59.00 Constipation, unspecified G43.119 Migraine with aura, intractable, without status migrainosus F17.210 Nicotine dependence, cigarettes, uncomplicated H52.4 Presbyopia M25.512 Pain in left shoulder M25.522 Pain in left elbow M25.531 Pain in right wrist M79.645 Pain in left finger(s) M54.5 Low back pain L20.9 Atopic dermatitis, unspecified G47.00 Insomnia, unspecified F41.9 Anxiety disorder, unspecified H90.3 Sensorineural hearing loss, bilateral M25.551 Pain in right hip R05 Cough R09.81 Nasal congestion R06.02 Shortness of breath M79.606 Pain in leg, unspecified M25.569 Pain in unspecified knee K21.0 Gastro-esophageal reflux disease with esophagitis J30.9 Allergic rhinitis, unspecified M25.529 Pain in unspecified elbow R06.2 Wheezing R53.83 Other fatigue M79.7 Fibromyalgia M45.0 Ankylosing spondylitis of multiple sites in spine B07.9 Viral wart, unspecified E55.9 Vitamin D deficiency, unspecified Office Visit 02/22/2017 3:15p [facility] Kostas Batista [id number] Type 2 diabetes Abril Coffman mellitus with hyperglycemia I10 Essential (primary) hypertension E78.2 Mixed hyperlipidemia J44.9 Chronic obstructive pulmonary disease, unspecified K51.918 Ulcerative colitis, unspecified with other complication K30 Functional dyspepsia F33.9 Major depressive disorder, recurrent, unspecified K58.0 Irritable bowel syndrome with diarrhea K59.00 Constipation, unspecified G43.119 Migraine with aura, intractable, without status migrainosus F17.210 Nicotine dependence, cigarettes, uncomplicated H52.4 Presbyopia M25.512 Pain in left shoulder M25.522 Pain in left elbow M25.531 Pain in right wrist M79.645 Pain in left finger(s) M54.5 Low back pain L20.9 Atopic dermatitis, unspecified G47.00 Insomnia, unspecified F41.9 Anxiety disorder, unspecified H90.3 Sensorineural hearing loss, bilateral M25.551 Pain in right hip R05 Cough R09.81 Nasal congestion R06.02 Shortness of breath M79.606 Pain in leg, unspecified M25.569 Pain in unspecified knee K21.0 Gastro-esophageal reflux disease with esophagitis J30.9 Allergic rhinitis, unspecified M25.529 Pain in unspecified elbow R06.2 Wheezing R53.83 Other fatigue M79.7 Fibromyalgia M45.0 Ankylosing spondylitis of multiple sites in spine B07.9 Viral wart, unspecified Office Visit 12/23/2016 10:45a [facility] Lester Yueivon E11.65 Type 2 diabetes Abril Coffman mellitus with hyperglycemia I10 Essential (primary) hypertension E78.2 Mixed hyperlipidemia J44.9 Chronic obstructive pulmonary disease, unspecified K51.918 Ulcerative colitis, unspecified with other complication K30 Functional dyspepsia F33.9 Major depressive disorder, recurrent, unspecified K58.0 Irritable bowel syndrome with diarrhea K59.00 Constipation, unspecified G43.119 Migraine with aura, intractable, without status migrainosus F17.210 Nicotine dependence, cigarettes, uncomplicated H52.4 Presbyopia M25.512 Pain in left shoulder M25.522 Pain in left elbow M25.531 Pain in right wrist M79.645 Pain in left finger(s) M54.5 Low back pain L20.9 Atopic dermatitis, unspecified G47.00 Insomnia, unspecified F41.9 Anxiety disorder, unspecified H90.3 Sensorineural hearing loss, bilateral M25.551 Pain in right hip R05 Cough R09.81 Nasal congestion R06.02 Shortness of breath M79.606 Pain in leg, unspecified M25.569 Pain in unspecified knee K21.0 Gastro-esophageal reflux disease with esophagitis J30.9 Allergic rhinitis, unspecified M25.529 Pain in unspecified elbow R06.2 Wheezing R53.83 Other fatigue M79.7 Fibromyalgia M45.0 Ankylosing spondylitis of multiple sites in spine Z23 Encounter for immunization Office Visit 10/21/2016 2:00p [facility] Lester Yueivon E11.65 Type 2 diabetes Abril Coffman mellitus with hyperglycemia I10 Essential (primary) hypertension E78.2 Mixed hyperlipidemia J44.9 Chronic obstructive pulmonary disease, unspecified K51.918 Ulcerative colitis, unspecified with other complication K30 Functional dyspepsia F33.9 Major depressive disorder, recurrent, unspecified K58.0 Irritable bowel syndrome with diarrhea K59.00 Constipation, unspecified G43.119 Migraine with aura, intractable, without status migrainosus F17.210 Nicotine dependence, cigarettes, uncomplicated H52.4 Presbyopia M25.512 Pain in left shoulder M25.522 Pain in left elbow M25.531 Pain in right wrist M79.645 Pain in left finger(s) M54.5 Low back pain L20.9 Atopic dermatitis, unspecified G47.00 Insomnia, unspecified F41.9 Anxiety disorder, unspecified H90.3 Sensorineural hearing loss, bilateral M25.551 Pain in right hip R05 Cough R09.81 Nasal congestion R06.02 Shortness of breath M79.606 Pain in leg, unspecified M25.569 Pain in unspecified knee K21.0 Gastro-esophageal reflux disease with esophagitis J30.9 Allergic rhinitis, unspecified M25.529 Pain in unspecified elbow R06.2 Wheezing R53.83 Other fatigue M79.7 Fibromyalgia M45.0 Ankylosing spondylitis of multiple sites in spine Office Visit 08/24/2016 8:45a [facility] Kostas Batista E11.65 Type 2 diabetes Abril Coffman mellitus with hyperglycemia I10 Essential (primary) hypertension E78.2 Mixed hyperlipidemia J44.9 Chronic obstructive pulmonary disease, unspecified K51.918 Ulcerative colitis, unspecified with other complication K30 Functional dyspepsia F33.9 Major depressive disorder, recurrent, unspecified K58.0 Irritable bowel syndrome with diarrhea K59.00 Constipation, unspecified G43.119 Migraine with aura, intractable, without status migrainosus F17.210 Nicotine dependence, cigarettes, uncomplicated H52.4 Presbyopia M25.512 Pain in left shoulder M25.522 Pain in left elbow M25.531 Pain in right wrist M79.645 Pain in left finger(s) M54.5 Low back pain L20.9 Atopic dermatitis, unspecified G47.00 Insomnia, unspecified F41.9 Anxiety disorder, unspecified H90.3 Sensorineural hearing loss, bilateral M25.551 Pain in right hip R05 Cough R09.81 Nasal congestion R06.02 Shortness of breath M79.606 Pain in leg, unspecified M25.569 Pain in unspecified knee K21.0 Gastro-esophageal reflux disease with esophagitis J30.9 Allergic rhinitis, unspecified M25.529 Pain in unspecified elbow R06.2 Wheezing R53.83 Other fatigue Office Visit 08/20/2016 9:00a [facility] Lester Yueivon E11.65 Type 2 diabetes Abril Coffman mellitus with hyperglycemia I10 Essential (primary) hypertension E78.2 Mixed hyperlipidemia J44.9 Chronic obstructive pulmonary disease, unspecified K51.918 Ulcerative colitis, unspecified with other complication K30 Functional dyspepsia F33.9 Major depressive disorder, recurrent, unspecified K58.0 Irritable bowel syndrome with diarrhea K59.00 Constipation, unspecified G43.119 Migraine with aura, intractable, without status migrainosus F17.210 Nicotine dependence, cigarettes, uncomplicated Z68.23 Body mass index (BMI) 23.0-23.9, adult H52.4 Presbyopia M25.512 Pain in left shoulder M25.522 Pain in left elbow M25.531 Pain in right wrist M79.645 Pain in left finger(s) M54.5 Low back pain L20.9 Atopic dermatitis, unspecified G47.00 Insomnia, unspecified F41.9 Anxiety disorder, unspecified H90.3 Sensorineural hearing loss, bilateral M25.551 Pain in right hip R05 Cough R09.81 Nasal congestion R06.02 Shortness of breath M79.606 Pain in leg, unspecified M25.569 Pain in unspecified knee K21.0 Gastro-esophageal reflux disease with esophagitis J30.9 Allergic rhinitis, unspecified M25.529 Pain in unspecified elbow R06.2 Wheezing Z00.01 Encounter for general adult medical exam w abnormal findings R53.83 Other fatigue Office Visit 08/19/2016 9:15a [facility] Lester Yueivon E11.65 Type 2 diabetes Elaina Coffman. mellitus with hyperglycemia I10 Essential (primary) hypertension E78.2 Mixed hyperlipidemia J44.9 Chronic obstructive pulmonary disease, unspecified K51.918 Ulcerative colitis, unspecified with other complication K30 Functional dyspepsia F33.9 Major depressive disorder, recurrent, unspecified K58.0 Irritable bowel syndrome with diarrhea K59.00 Constipation, unspecified G43.119 Migraine with aura, intractable, without status migrainosus F17.210 Nicotine dependence, cigarettes, uncomplicated H52.4 Presbyopia M25.512 Pain in left shoulder M25.522 Pain in left elbow M25.531 Pain in right wrist M79.645 Pain in left finger(s) M54.5 Low back pain L20.9 Atopic dermatitis, unspecified G47.00 Insomnia, unspecified F41.9 Anxiety disorder, unspecified H90.3 Sensorineural hearing loss, bilateral M25.551 Pain in right hip R05 Cough R09.81 Nasal congestion R06.02 Shortness of breath M79.606 Pain in leg, unspecified M25.569 Pain in unspecified knee K21.0 Gastro-esophageal reflux disease with esophagitis J30.9 Allergic rhinitis, unspecified M25.529 Pain in unspecified elbow R06.2 Wheezing Office Visit 08/13/2016 9:15a [facility] Kostas Batista E11.65 Type 2 diabetes Abril Coffman mellitus with hyperglycemia I10 Essential (primary) hypertension E78.2 Mixed hyperlipidemia J44.9 Chronic obstructive pulmonary disease, unspecified K51.918 Ulcerative colitis, unspecified with other complication K30 Functional dyspepsia F33.9 Major depressive disorder, recurrent, unspecified K58.0 Irritable bowel syndrome with diarrhea K59.00 Constipation, unspecified G43.119 Migraine with aura, intractable, without status migrainosus F17.210 Nicotine dependence, cigarettes, uncomplicated H52.4 Presbyopia M25.512 Pain in left shoulder M25.522 Pain in left elbow M25.531 Pain in right wrist M79.645 Pain in left finger(s) M54.5 Low back pain L20.9 Atopic dermatitis, unspecified G47.00 Insomnia, unspecified F41.9 Anxiety disorder, unspecified H90.3 Sensorineural hearing loss, bilateral M25.551 Pain in right hip R05 Cough R09.81 Nasal congestion R06.02 Shortness of breath M79.606 Pain in leg, unspecified M25.569 Pain in unspecified knee K21.0 Gastro-esophageal reflux disease with esophagitis J30.9 Allergic rhinitis, unspecified M25.529 Pain in unspecified elbow R06.2 Wheezing Office Visit 05/18/2016 11:15a [facility] Kostas Batista J20.9 Acute bronchitisAugustus M.D. unspecified J01.40 Acute pansinusitis, unspecified H66.93 Otitis media, unspecified, bilateral E11.65 Type 2 diabetes mellitus with hyperglycemia I10 Essential (primary) hypertension E78.2 Mixed hyperlipidemia J44.9 Chronic obstructive pulmonary disease, unspecified K51.918 Ulcerative colitis, unspecified with other complication K30 Functional dyspepsia F33.9 Major depressive disorder, recurrent, unspecified K58.0 Irritable bowel syndrome with diarrhea K59.00 Constipation, unspecified G43.119 Migraine with aura, intractable, without status migrainosus F17.210 Nicotine dependence, cigarettes, uncomplicated H52.4 Presbyopia M25.512 Pain in left shoulder M25.522 Pain in left elbow M25.531 Pain in right wrist M79.645 Pain in left finger(s) M54.5 Low back pain L20.9 Atopic dermatitis, unspecified G47.00 Insomnia, unspecified F41.9 Anxiety disorder, unspecified H90.3 Sensorineural hearing loss, bilateral M25.551 Pain in right hip R05 Cough R09.81 Nasal congestion R06.02 Shortness of breath M79.606 Pain in leg, unspecified M25.569 Pain in unspecified knee K21.0 Gastro-esophageal reflux disease with esophagitis J30.9 Allergic rhinitis, unspecified Office Visit 04/12/2016 9:45a [facility] Rogerio Mccormick B34.9 Viral infection, [employer] unspecified J01.80 Other acute sinusitis R06.2 Wheezing F17.210 Nicotine dependence, cigarettes, uncomplicated Office Visit 03/16/2016 1:45p [facility] Kostas Batista E11.65 Type 2 diabetes Abril Coffman mellitus with hyperglycemia I10 Essential (primary) hypertension E78.2 Mixed hyperlipidemia J44.9 Chronic obstructive pulmonary disease, unspecified K51.918 Ulcerative colitis, unspecified with other complication K30 Functional dyspepsia F33.9 Major depressive disorder, recurrent, unspecified K58.0 Irritable bowel syndrome with diarrhea K59.00 Constipation, unspecified G43.119 Migraine with aura, intractable, without status migrainosus H52.4 Presbyopia M25.512 Pain in left shoulder M25.522 Pain in left elbow M25.531 Pain in right wrist M79.645 Pain in left finger(s) M54.5 Low back pain L20.9 Atopic dermatitis, unspecified G47.00 Insomnia, unspecified F41.9 Anxiety disorder, unspecified F17.210 Nicotine dependence, cigarettes, uncomplicated H90.3 Sensorineural hearing loss, bilateral M25.551 Pain in right hip R05 Cough R09.81 Nasal congestion R06.02 Shortness of breath M79.606 Pain in leg, unspecified M25.569 Pain in unspecified knee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
[2018-01-15 08:02] VITALS: BP 139/63
[2018-01-15] MEDS ORDERED: Levalbuterol 0.63MG/3ML NEB* UNIT OF USE INH ONE (08:20)
--- NOTE | 2018-01-15 08:31 | UC ---
Respiratory Complaint HPI - HPI Summary HPI Summary: Pt presents with c/o cough, generalized malaise, body aches X 2 days. Pt received flu vaccine last week. - History of Current Complaint Chief Complaint: UCRespiratory Stated Complaint: COUGH,RUNNY NOSE,ACHY Time Seen by Provider: 01/15/18 08:06 Hx Obtained From: Patient ?: No Onset/Duration: Sudden Onset, Lasting Days Timing: Constant Severity Initially: Mild Severity Currently: Moderate Pain Intensity: 4 Character: Cough: Nonproductive Aggravating Factors: Exertion, Deep Breaths, Recumbent Position Alleviating Factors: Nothing Associated Signs And Symptoms: Positive: Chills, URI - Risk Factors Pulmonary Embolism Risk Factors: Smoking Cardiac Risk Factors: Smoking Tuberculosis Risk Factors: Smoking - Allergies/Home Medications Allergies/Adverse Reactions: Allergies Allergy/AdvReac Type Severity Reaction Status Date / Time MS Azithromycin AdvReac Mild GI Upset Verified 01/15/18 07:47 [Azithromycin] MS Varenicline [From Chantix] AdvReac GI Upset Verified 01/15/18 07:47 Home Medications: Home Medications Atorvastatin* [Lipitor 10 MG*] 10 mg PO DAILY 01/15/18 [History Confirmed ] Cholecalciferol (Vitamin D3) [Vitamin D3] 2,000 unit PO 01/15/18 [History] Cyanocobalamin (Vitamin B-12) [Vitamin B-12] 2,000 mcg PO 01/15/18 [History] Ibuprofen TAB* [Motrin TAB* 600 MG] 600 mg PO Q6H PRN 01/15/18 [History Confirmed 01/15/18] Polyethylene Glycol 3350* [Miralax*] 17 gm PO DAILY 01/15/18 [History Confirmed 01/15/18] PMH/Surg Hx/FS Hx/Imm Hx Previously Healthy: Yes Cardiovascular History: Cardiac Disease, Hypertension Respiratory History: COPD - Surgical History Surgical History: Yes Surgery Procedure, Year, and Place: colon surgeries a total 14 r/t cancer, bowel obstructions. caleb, hysterectomy - Family History Known Family History: Positive: Cardiac Disease, Hypertension - Social History Occupation: Retired Lives: With Family Alcohol Use: None Substance Use Type: None Smoking Status (MU): Heavy Every Day Tobacco Smoker Type: Cigarettes Amount Used/How Often: 1 PPD Length of Time of Smoking/Using Tobacco: 44 Years Have You Smoked in the Last Year: Yes Household Exposure Type: Cigarettes - Immunization History Most Recent Influenza Vaccination: january 2018 Most Recent Tetanus Shot: ~2008 Most Recent Pneumonia Vaccination: February 2014 Vaccination Up to Date: Yes Review of Systems Constitutional: Chills, Fatigue Skin: Negative Eyes: Negative ENT: Negative Respiratory: Cough Cardiovascular: Negative Gastrointestinal: Negative Genitourinary: Negative Motor: Negative Neurovascular: Negative Musculoskeletal: Myalgia Neurological: Negative Psychological: Negative Is Patient Immunocompromised?: No All Other Systems Reviewed And Are Negative: Yes Physical Exam Triage Information Reviewed: Yes Appearance: Ill-Appearing Vital Signs: Initial Vital Signs Temp 98.9 F 01/15/18 07:54 Pulse 87 01/15/18 07:54 Resp 32 01/15/18 07:54 BP 139/63 01/15/18 07:54 Pulse Ox 96 01/15/18 07:54 Vital Signs Reviewed: Yes Eye Exam: Normal ENT: Positive: Other - cerumen right ear Dental Exam: Normal Neck exam: Normal Respiratory: Positive: Wheezing Cardiovascular Exam: Normal Musculoskeletal Exam: Normal Neurological Exam: Normal Psychological Exam: Normal Skin Exam: Normal UC Diagnostic Evaluation - Laboratory O2 Sat by Pulse Oximetry: 96 Respiratory Course/Dx - Differential Dx/Diagnosis Differential Diagnosis/HQI/PQRI: Bronchitis, Influenza Provider Diagnoses: bronchitis Discharge - Sign-Out/Discharge Documenting (check all that apply): Patient Departure All imaging exams completed and their final reports reviewed: No Studies - Discharge Plan Condition: Stable Disposition: HOME Prescriptions: Albuterol 2.5MG/3ML (0.083%)* [Ventolin 2.5 MG/3 ML NEB.GORDON*] 2.5 mg INH Q4H PRN #1 box PRN Reason: Sob/Wheezing Benzonatate CAP* [Tessalon 100 MG CAP*] 100 mg PO Q8H PRN #30 cap PRN Reason: Cough DOXYcycline CAP(*) [DOXYcycline 100MG CAP(*)] 100 mg PO Q12H #20 cap predniSONE TAB* [Deltasone 20 MG TAB*] 20 mg PO DAILY #4 tab Patient Education Materials: Acute Bronchitis (ED) Referrals: Kostas Batista MD [Primary Care Provider] - If Needed - Billing Disposition and Condition Condition: STABLE Disposition: Home - Attestation Statements Provider Attestation: I was available for consult. This patient was seen by the ED. The patient was not presented to, seen by, or examined by me. -Jennifer
== END 2018-01-15 09:02 | disposition home or self-care (01) ==
LOC: UCCORT 07:36
DX: J40 Bronchitis, not specified as acute or chronic (principal); Z88.1 Allergy status to other antibiotic agents; Z88.8 Allergy status to other drugs, medicaments and biological substances; I10 Essential (primary) hypertension; F17.210 Nicotine dependence, cigarettes, uncomplicated
CPT/HCPCS: 69209; 99212; G0463

== ENCOUNTER 2018-05-06 07:44 | Emergency (ER) | payer MEDICARE ==
--- OUTSIDE RECORDS SUMMARY | 2018-05-06 07:52 | XMS REPORT | Continuity of Care Document ---
:1945 External Reference #:[id number] Author Name Kostas Batista M.D. Address [address] [facility] [address] [place] [address] Care Team Providers Name Role Phone Kostas Batista M.D. 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 Payers Type Date Identification Numbers Payment Provider Subscriber Effective: 2018 Policy Number: [id number] [employer] Eve Stone PayID: [id number] [address] [place] [address] Expires: 2018 Policy Number: [id number] [facility] Medicare Eve Stone PayID: [id number] [address] [address] [place] [address] Expires: 2015 Policy Number: [id number] Medicaid After Medicare Eve Stone Group Name: [address] [facility] PayID: [id number] [place] [address] Advance Directives Description No Information Available Problems [...] A DAY every day Smoking Status Reviewed: 04/13/18 Patient is a current smoker, smokes 1 PACK A DAY every day Allergies, Adverse Reactions, Alerts Date Description Reaction Status Severity Comments 03/18/2015 NKDA Active 03/18/2015 Z Packs Active Medications Medication Date Status Form Strength Qnty SIG Indications Ordering Provider Miralax 06/30/19 Active Powder 3350NF 1020unit 1-2 caps K59.00 Lester, Ahmad 18 s by mouth Eliane. M.D. every day Lipitor 05/27/19 Active Tablets 10mg 90tabs 1 by mouth E78.2 Lester, Ahmad 18 every day M., M.D. Ibuprofen 10/22/19 Active Tablets 600mg 90tabs take 1 M25.529 Lester, Ahmad 17 tablet by Abril Coffman mouth every 8 hours as needed for [...] Tablets 10mg 14tabs 1 tab by G43.119 Lester, Ahmad mouth twice a M., M.D. day as needed Doxepin HCL Active Capsules 25mg 180caps 2 cap by G47.00 Lester, Ahmad mouth every M., M.D. day F41.9 F33.[address] 40mg 90caps 1 by mouth Lester, every day Ahmad Eliane Coffman.D. Bisoprolol Active Tablets 5-6.25mg 90tabs 1 tab by I10 Lester , Fumarate/Hydroc mouth Ahmad M., hlorothiazide every day M.D. Proair HFA Active Aerosol 108(90Bas 25.5gm inhale 2 J44. Lester e) puffs by 9 Ahmad M., mcg/Act mouth M.D. every 4 hours if needed R06.02 Keflex Hx Capsules 500mg 30caps 1 by mouth E11.65 Lester 018 - three times a Ahmad M., day M.D. 018 Levofloxacin Hx Tablets 750mg 10tabs 1 by mouth E11.65 Lester, 018 - every day Ahmad M., M.D. [...] R skin every 72 9 Ahmad M., 02/09/ hours M.D. 017 M79.606 M25.512 Gabapentin 08/19/2016 - Hx Capsules 300mg 90caps 1 cap by M25.529 Lester Ahmad 02/09/2017 mouth every M., M.D. night And 1 bid prn M25.569 M79.606 Prednisone 08/13/2016 - Hx Tablets 20mg 18tabs 3 tab by M25.529 Lester, mad 08/21/2016 mouth daily M., M.D. 3 days, then 2 tab daily x 3 d , then 1 tab daily 3d M79.606 M25.569 Ibuprofen 08/13/2016 - Hx Tablets 200mg 2-4 tab by M25.529 Lester, mad 10/21/2016 mouth every 6 M., M.D. hours as needed M79.606 M25.569 Prednisone 05/18/2016 Hx Tablets 20mg 20tabs 2 tab by mouth daily 4 E11.65 Lester, - days,30x3d,20x2d,[facility] Elaina Coffman. Cipro 05/18/2016 Hx Tablets 500mg 30tabs 1 tab by mouth twice a E11.65 Lester, - day Ahmad 06/02/2016 Elaina Coffman. Azithromycin 04/12/2016 Hx Tablets 250mg 6tabs take two tablets by J01.80 [facility], - mouth as one dose on mad 08/09/2016 the first day then take M., [...] day x J01.80 Lester, - 10 days Ahmad 08/09/2016 Elaina Coffman. Fluconazole 03/12/2016 Hx Tablets 100mg 20tabs 1 by mouth twice a day B37.0 Lester, - Ahmad 03/22/2016 Elaina Coffman. Cipro 03/02/2016 Hx Tablets 500mg 20tabs 1 tab by mouth twice a E11.65 Lester, - day Ahmad 03/03/2016 Abril Coffman Prednisone 02/27/2016 Hx Tablets 20mg 20tabs 2 tab by mouth daily 4 E11.65 Lester, - days,30x3d,20x2d,10x7d mad 03/10/2016 Abril Coffman Augmentin 02/27/2016 Hx Tablets 875-1 20tabs 1 tab by mouth twice a E11.65 Lester, - 25mg day mad 03/02/2016 Abril Coffman Dicyclomine 02/27/2016 Hx Capsules 10mg 1 cap by mouth every K51.918 Lester, HCL - day-By GI ronaldd 02/09/2017 Abril Coffman K59.00 Asacol HD 10/23/2015 - Hx Tablets DR 800mg 180tabs 1 tab by K58.0 Lester , Ahmad 12/30/2015 mouth twice Abril Coffman a day [...] with E11.65 Lester, 05/07/2015 Rec 2 cubic Yuemsasya centimeters Abril Coffman lidocaine give intramuscular to l deltoid Solu-Medrol 05/06/2015 - Hx Solution 125mg 1units given iv E11.65 Lester , 05/07/2015 Rec Kostas Coffman M.D. Percocet 05/06/2015 - Hx Tablets 5-325mg 120tabs 1-2 tab by R05 Lester, 08/09/2016 mouth every 4 Ahmad hours as needed Abril Coffman M25.531 M25.512 Doxycycline 04/24/2015 - Hx Capsules 100mg 20caps take 1 Lester, Hyclate 04/24/2015 capsule MD Kostas twice a day Doxycycline 04/24/2015 - Hx Capsules 100mg 20caps 1 cap by Alfredo Batistaclate 05/04/2015 mouth twice Kostas Coffman, a day M.D. Prednisone 04/24/2015 - Hx Tablets 20mg 20tabs 2 tab by R06. Lester, 05/19/2015 mouth daily 02 Kostas Coffman, 4 M.D. days,30x3d, 20x2d,10x7d Advair Diskus 04/10/2015 - Hx Aerosol 250-50mcg 60units 1 by mouth J44. Lester, 10/12/2015 /Dose twice a day 9 Kostas Coffman M.D. Fluconazole 04/10/2015 - Hx Tablets 100mg 14tabs 1 by mouth B37. Lester, 04/16/2015 twice a day 0 Kostas Coffman M.D. Tramadol HCL 04/01/2015 - Hx Tablets 50mg 60tabs 1 by mouth M25. Lester, 05/06/2015 every 4 522 Kostas Coffman, hours as M.D. needed M25.531 M25.512 Amoxicillin 04/01/2015 - Hx Tablets 500mg 40tabs 2 by mouth Kostas Batista 04/11/2015 twice a day Abril Coffman Prednisone 04/01/2015 - Hx Tablets 20mg 20tabs 2 tab by Kostas Batista 04/10/2015 mouth daily Abril Coffman 4 days,30x3d, [...] Q2038 Given 01/10/2018 Flu Vaccine 3+Yrs Old(Fluzone) [id number] Q2038 Given 12/23/2016 Flu Vaccine 3+Yrs Old(Fluzone) [id number] 48881 Given 12/23/2016 Pneumococcal Conjugate Vaccine 13 Valent For [id number] Intramuscular Use Q2038 Given 03/25/2015 Flu Vaccine 3+Yrs Old(Fluzone) 29632 Given 03/25/2015 Flu Vaccine [id number] 65907 Given 01/28/2014 Pneumovax Vital Signs Date Vital Result Comment 04/13/2018 1:13pm BP Systolic 142 mmHg BP Diastolic 78 mmHg Height 63 inches 5'3" Weight 124.00 lb BMI (Body Mass Index) 22.0 kg/m2 Heart Rate 74 /min Respiratory Rate 16 /min 02/28/2018 2:04pm BP Systolic 116 mmHg BP Diastolic 62 mmHg Height 63 inches 5'3" Weight 125.00 lb BMI (Body Mass Index) 22.1 kg/m2 Heart Rate 81 /min Respiratory Rate 16 /min 02/16/2018 9:01am BP Systolic 126 mmHg BP Diastolic 78 mmHg Height 63 inches 5'3" Weight 124.00 lb BMI (Body Mass Index) 22.0 kg/m2 Heart Rate 98 /min Respiratory Rate 16 /min 01/10/2018 2:04pm BP Systolic 128 mmHg BP [...] Date Facility Test Result H/L Range Note [facility] Urine 02/28/2018 [facility] Albumin, 1.06 mg/dL Albumin @ [facility] Urine (607)- - Creatinine,Urine 51.10 mg/dL Alb/Creatinine Ratio 20.7 ug/mg (0.0-29.9) CBC With Diff 02/16/2018 [facility] WBC 8.6 10*3/uL (4.1-11.0) [address] [facility] (607)- - RBC 4.67 10*6/uL (4.00-5.40) HGB 14.0 g/dL (12.0-16.0) HCT 42.8 % (36.0-47.0) MCV 91.5 fL (80.0-95.0) MCH 30.1 pg (27.0-32.0) MCHC 32.8 g/dL (32.0-36.0) RDW 13.7 % (10.5-14.5) PLT 176 10*3/uL (150-450) MPV 11.0 fL High (7.1-10.7) Neut % 58.3 % (35.0-75.0) Lymph % 30.7 % (16.0-52.0) Glacier % 7.2 % (0.0-8.0) Eos % 2.8 % (0.0-5.0) Baso % 1.0 % (0.0-4.0) Neut # 5.0 10*3/uL (1.8-7.7) Lymph # 2.6 10*3/uL (1.2-4.8) Glacier # 0.6 10*3/uL (0.0-0.8) Eos # 0.2 10*3/uL (0.0-0.5) Baso # 0.1 10*3/uL (0.0-0.2) CMP 02/16/2018 [facility] Sodium 143 mmol/L (136-145) [address] [facility] (607)- - Potassium 3.8 mmol/L (3.6-5.2) Chloride 110 mmol/L High (100-108) Co2 27 mmol/L (22-31) Anion Gap 6 mmol/L Low (7-16) Urea Nitrogen 16 mg/dL (7-24) Creatinine 1.14 mg/dL High (0.60-1.00) BUN/Creat Ratio 14.0 RATIO (10.0-20.0) Glucose 81 mg/dL (70-99) Calcium 8.9 mg/dL (8.4-10.2) Total Protein 6.5 g/dL (6.4-8.2) Albumin 3.6 g/dL (3.2-4.5) Globulin 2.9 g/dL (2.7-4.3) Alb/Glob Ratio 1.2 RATIO Alkaline Phosphatase 81 U/L (45-117) Bilirubin,Total 0.4 mg/dL (0.0-1.0) Ast (Sgot) 15 U/L (11-39) Alt (SGPT) 21 U/L (12-78) GFR 47 ml/min/1.73m2 Low (>59) GFR ( Amer) 57 ml/min/1.73m2 Low (>59) GFR Interpretation <SEE NOTE> 1 Lipid 02/16/2018 [facility] Cholesterol @ 182 mg/dL (0-200) [facility] (607)- - Triglyceride @ 163 mg/dL (30-200) HDL Cholesterol @ 49 mg/dL (>40) 2 Chol/HDL Ratio 3.7 RATIO 3 LDL Chol (Calc) 100 mg/dL (<130) 4 Laboratory 02/16/2018 [facility] TSH,Ultrasensitive @ 1.560 (0.360- 4.170) test finding [facility] mIU/L (607)- - Hemoglobin A1c 02/16/2018 [facility] Hemoglobin A1c @ 6.0 % (4.0-6.0) 5 [address] [facility] (607)- - Est Average Glucose 126 mg/dL Laboratory test 02/16/2018 [facility] 25 Hydroxy Vit D 31 ng/mL (31- 100) 6 finding [address] [facility] @ (607)- - Rapid Influenza A 01/15/2018 [facility] Influenza A NEGATIVE Negative 7 & B Molecular Molecular Influenza B Molecular NEGATIVE Negative Basic Metabolic Panel 06/14/2017 [place] Glucose 126 mg/dL High 74-106 8 BUN 9 mg/dL N 7-18 Creatinine 0.7 mg/dL N 0.6-1.3 Glom Filtration Rate, Estimate >60 mL/min >60 If >60 mL/min >60 9 BUN/Creat 12.8 ratio Sodium 144 mmol/L N 136-145 Potassium 4.0 mmol/L N 3.5-5.1 Chloride 117 mmol/L High 98-107 Carbon Dioxide 19 mmol/L Low 21-32 Anion Gap 8 mEq/L N 8-16 Calcium 8.0 mg/dL Low 8.5-10.1 CBS W/Automated Diff 06/14/2017 [place] White Blood Count 13.0 K/uL High 3.1-10.7 Red Blood Count 3.97 M/uL N 3.90-5.40 Hemoglobin 12.3 gm/dL N 11.6-15.8 Hematocrit 36.2 % 36.0-46.1 Mean Cell Volume 90.2 fl N 80.9-99.0 Mean Corpuscular HGB 31.0 pg N 25.9-32.7 Mean Corpuscular HGB Conc 34.4 g/dL High 30.8-34.3 Platelet Count 141 K/uL Low 155-360 Red Cell Distri Width SD 42.1 fl N 3-47 Red Cell Distri Width %CV 13.0 % N 11.7-14.4 Mean Platelet Volume 11.8 fL N 8.9-12.4 Neut% 90.2 % High 40.4-72.8 Lymph % 7.8 % Low 20.0-42.0 Glacier % 2.0 % Low 4.3-13.2 Eo% 0.0 % N 0.0-6.6 Bas% 0.0 % N 0.0-1.1 Neut# 11.68 K/uL High 1.8-7.0 Lymph # 1.01 K/uL N 1.0-4.0 Glacier # 0.26 K/uL Low 0.3-0.9 Eos # 0.00 K/uL N 0.0-0.5 Baso # 0.00 K/uL N 0.0-0.1 Basic Metabolic Panel 06/14/2017 [place] Glucose 150 mg/dL High 74-106 BUN 9 mg/dL N 7-18 Creatinine 0.9 mg/dL N 0.6-1.3 Glom Filtration Rate, Estimate >60 mL/min >60 If >60 mL/min >60 10 BUN/Creat 10.0 ratio Sodium 146 mmol/L High 136-145 Potassium 3.6 mmol/L N 3.5-5.1 Chloride 119 mmol/L High 98-107 Carbon Dioxide 17 mmol/L Low 21-32 Anion Gap 10 mEq/L N 8-16 Calcium 8.0 mg/dL Low 8.5-10.1 Blood Culture 06/13/2017 [place] Blood Culture Aerobic NO GROWTH: FINAL < SEE 11 NOTE> Blood Culture Anaerobic NO GROWTH: FINAL <SEE NOTE> 12 Lactic Acid 06/13/2017 [place] Lactic Acid 2.6 mmol/L High 0.4-1.9 13 Lab Reflex >2.0 for Sepsis? Y Influenza A/B 06/13/2017 [place] Influenza A Antigen Negative (Negative ) Antigen Influenza B Antigen Negative (Negative) 14 Blood Culture 06/13/2017 [place] Blood Culture NO GROWTH: FINAL 15, 16 Aerobic <SEE NOTE> Blood Culture Anaerobic NO GROWTH: FINAL <SEE NOTE> 17 Streptococcus Pneumoniae Ag,Ur 06/13/2017 [place] Specimen Source Urine . Streptococcus Pneumoniae Ag,Ur NEGATIVE Negative Body Fluid Culture, Sterile Not Indicated . Organism Id Not indicated. . Please Note: (SEE NOTE) 18 Urine Culture 06/13/2017 [place] Urine Culture MIXED URETHRAL F <SEE NOTE > 19 Quantity 10,000 - 50,000 <SEE NOTE> 20 Laboratory test 06/13/2017 [place] Legionella Negative Negative 21 finding Urinary Antigen Legionella 06/13/2017 [place] Legionella No Legionella sp 22 Culture Culture <SEE NOTE> Laboratory test 06/13/2017 [place] Lactic Acid 4.3 mmol/L High 0.4-1.9 23 finding Lactic Acid 06/13/2017 [place] Lactic Acid 1.2 mmol/L N 0.4-1.9 Lab Reflex >2.0 for Sepsis? Y Laboratory test finding 06/13/2017 [place] Lactic Acid 3.9 mmol/L High 0.4-1.9 Lactic Acid 06/13/2017 [place] Lactic Acid 4.2 mmol/L High 0.4-1.9 Lab Reflex >2.0 for Sepsis? Y CBC Auto Diff 05/18/2017 [facility] White Blood 14.7 10^3/uL High 3.5 -10.8 Count Red Blood Count 4.80 10^6/uL N 4.0-5.4 Hemoglobin 14.6 g/dL N 12.0-16.0 Hematocrit 44 % N 35-47 Mean Corpuscular Volume 93 fL N 80-97 Mean Corpuscular Hemoglobin 31 pg N 27-31 Mean Corpuscular HGB Conc 33 g/dL N 31-36 Red Cell Distribution Width 14 % N 10.5-15 Platelet Count 191 10^3/uL N 150-450 Mean Platelet Volume 11 um3 High 7.4-10.4 Giant Platelets Present Abs Neutrophils 11.0 10^3/uL High 1.5-7.7 Abs Lymphocytes 2.7 10^3/uL N 1.0-4.8 Abs Monocytes 0.8 10^3/uL N 0-0.8 Abs Eosinophils 0 10^3/uL N 0-0.6 Abs Basophils 0.1 10^3/uL N 0-0.2 Abs Nucleated RBC 0 10^3/uL Granulocyte % 75.2 % N 38-83 Lymphocyte % 18.5 % Low 25-47 Monocyte % 5.5 % N 1-9 Eosinophil % 0.3 % N 0-6 Basophil % 0.5 % N 0-2 Nucleated Red Blood Cells % 0.1 Comp Metabolic Panel 05/18/2017 [facility] Sodium 138 mmol/L N 133- 145 Potassium 3.9 mmol/L N 3.5-5.0 Chloride 103 mmol/L N 101-111 Co2 Carbon Dioxide 29 mmol/L N 22-32 Anion Gap 6 mmol/L N 2-11 Glucose 76 mg/dL N 70-100 Blood Urea Nitrogen 16 mg/dL N 6-24 Creatinine 1.21 mg/dL High 0.51-0.95 BUN/Creatinine Ratio 13.2 N 8-20 Calcium 9.5 mg/dL N 8.6-10.3 Total Protein 6.4 g/dL N 6.4-8.9 Albumin 4.1 g/dL N 3.2-5.2 Globulin 2.3 g/dL N 2-4 Albumin/Globulin Ratio 1.8 N 1-3 Total Bilirubin 0.60 mg/dL N 0.2-1.0 Alkaline Phosphatase 63 U/L N 34-104 Alt 15 U/L N 7-52 Ast 13 U/L N 13-39 Egfr Non- 44.1 >60 Egfr 56.7 >60 24 Laboratory test 05/18/2017 [facility] Hemoglobin A1c 5.9 % High 4.0- 5.6 25 finding (Glyco HGB) TSH (Thyroid Stim Horm) 0.64 mcIU/mL N 0.34-5.60 26 Lipid Profile 05/18/2017 [facility] Triglycerides 168 mg/dL 27 (Trig/Chol/HDL) Cholesterol 239 mg/dL 28 HDL Cholesterol 50.0 mg/dL 29 LDL Cholesterol 155 mg/dL 30 Laboratory test 05/18/2017 [facility] Erythrocyte Sed Rate 4 mm/Hr N 0-40 31 finding Vitamin D Total 25(Oh) 34.5 ng/mL N 20-50 32 Laboratory test 02/25/2017 [facility] Vitamin D Total 29.3 ng/mL N 20 -50 33 finding 25(Oh) Lipid Profile 02/25/2017 [facility] Triglycerides 193 mg/dL 34 (Trig/Chol/HDL) Cholesterol 238 mg/dL 35 HDL Cholesterol 35.4 mg/dL 36 LDL Cholesterol 164 mg/dL 37 Laboratory test 02/25/2017 [facility] Hemoglobin A1c 5.6 % N 4.0-5.6 38 finding (Glyco HGB) TSH (Thyroid Stim Horm) 1.25 mcIU/mL N 0.34-5.60 39 Comp Metabolic Panel 02/25/2017 [facility] Sodium 141 mmol/L N 133- 145 Potassium 3.8 mmol/L N 3.5-5.0 Chloride 109 mmol/L N 101-111 Co2 Carbon Dioxide 25 mmol/L N 22-32 Anion Gap 7 mmol/L N 2-11 Glucose 84 mg/dL N 70-100 Blood Urea Nitrogen 10 mg/dL N 6-24 Creatinine 1.09 mg/dL High 0.51-0.95 BUN/Creatinine Ratio 9.2 N 8-20 Calcium 9.6 mg/dL N 8.6-10.3 Total Protein 6.4 g/dL N 6.4-8.9 Albumin 4.0 g/dL N 3.2-5.2 Globulin 2.4 g/dL N 2-4 Albumin/Globulin Ratio 1.7 N 1-3 Total Bilirubin 0.60 mg/dL N 0.2-1.0 Alkaline Phosphatase 72 U/L N 34-104 Alt 13 U/L N 7-52 Ast 15 U/L N 13-39 Egfr Non- 49.8 >60 Egfr 64.0 >60 40 CBC Auto Diff 02/25/2017 [facility] White Blood Count 7.5 10^3/uL N 3.5-10.8 Red Blood Count 4.92 10^6/uL N 4.0-5.4 Hemoglobin 14.8 g/dL N 12.0-16.0 Hematocrit 45 % N 35-47 Mean Corpuscular Volume 91 fL N 80-97 Mean Corpuscular Hemoglobin 30 pg N 27-31 Mean Corpuscular HGB Conc 33 g/dL N 31-36 Red Cell Distribution Width 13 % N 10.5-15 Platelet Count 200 10^3/uL N 150-450 Mean Platelet Volume 11 um3 High 7.4-10.4 Abs Neutrophils 4.0 10^3/uL N 1.5-7.7 Abs Lymphocytes 2.6 10^3/uL N 1.0-4.8 Abs Monocytes 0.5 10^3/uL N 0-0.8 Abs Eosinophils 0.3 10^3/uL N 0-0.6 Abs Basophils 0.1 10^3/uL N 0-0.2 Abs Nucleated RBC 0.01 10^3/uL Granulocyte % 53.2 % N 38-83 Lymphocyte % 34.5 % N 25-47 Monocyte % 6.9 % N 1-9 Eosinophil % 3.6 % N 0-6 Basophil % 1.8 % N 0-2 Nucleated Red Blood Cells % 0.1 Connective Tissue Panel 08/20/2016 [facility] Anti-Nuclear Antibody 0.3 U N 41 Cyclic Citrullinated Peptide <15.6 U N 42 Interpretation See Comment N 43 Laboratory test 08/20/2016 [facility] Rheumatoid Factor <15 IU/mL N < 15 44 finding Lyme Disease Serology Negative N Negative 45 Marisol Chavis 08/20/2016 [facility] Ebv Capsid Ag Negative N Negative Comprehensive IgG Ab Ebv Capsid Ag IgM Ab Negative N Negative Marisol-Chavis Nuclear Antigen Positive N Negative Marisol-Chavis Virus Interp See Comment N 46 Laboratory test 08/20/2016 [facility] Erythrocyte Sed Rate 4 mm/Hr N 0-40 47 finding Lipid Profile 08/20/2016 [facility] Triglycerides 192 mg/dL N 48 (Trig/Chol/HDL) Cholesterol 214 mg/dL N 49 HDL Cholesterol 42.6 mg/dL N 50 LDL Cholesterol 133 mg/dL N 51 Laboratory test 08/20/2016 [facility] Hemoglobin A1c 6.1 % High Less than 52 finding (Glyco HGB) 6.0 Vitamin D Total 25(Oh) 23.8 ng/mL Low 30-50 53 TSH (Thyroid Stim Horm) 0.81 mcIU/mL N 0.34-5.60 54 Comp Metabolic Panel 08/20/2016 [facility] Sodium 139 mmol/L N 133- 145 Potassium 3.5 mmol/L N 3.5-5.0 Chloride 106 mmol/L N 101-111 Co2 Carbon Dioxide 26 mmol/L N 22-32 Anion Gap 7 mmol/L N 2-11 Glucose 70 mg/dL N 70-100 Blood Urea Nitrogen 19 mg/dL N 6-24 Creatinine 1.18 mg/dL High 0.51-0.95 BUN/Creatinine Ratio 16.1 N 8-20 Calcium 9.6 mg/dL N 8.6-10.3 Total Protein 6.4 g/dL N 6.4-8.9 Albumin 4.0 g/dL N 3.2-5.2 Globulin 2.4 g/dL N 2-4 Albumin/Globulin Ratio 1.7 N 1-3 Total Bilirubin 0.50 mg/dL N 0.2-1.0 Alkaline Phosphatase 64 U/L N 34-104 Alt 34 U/L N 7-52 Ast 21 U/L N 13-39 Egfr Non- 45.6 N >60 Egfr 58.6 N >60 55 CBC Auto Diff 08/20/2016 [facility] White Blood 16.9 10^3/uL High 3.5 -10.8 Count Red Blood Count 4.90 10^6/uL N 4.0-5.4 Hemoglobin 14.7 g/dL N 12.0-16.0 Hematocrit 45 % N 35-47 Mean Corpuscular Volume 92 fL N 80-97 Mean Corpuscular Hemoglobin 30 pg N 27-31 Mean Corpuscular HGB Conc 33 g/dL N 31-36 Red Cell Distribution Width 13 % N 10.5-15 Platelet Count 189 10^3/uL N 150-450 Mean Platelet Volume 11 um3 High 7.4-10.4 Abs Neutrophils 10.1 10^3/uL High 1.5-7.7 Abs Lymphocytes 5.4 10^3/uL High 1.0-4.8 Abs Monocytes 1.0 10^3/uL High 0-0.8 Abs Eosinophils 0.3 10^3/uL N 0-0.6 Abs Basophils 0 10^3/uL N 0-0.2 Abs Nucleated RBC 0.01 10^3/uL N Granulocyte % 60.0 % N 38-83 Lymphocyte % 32.2 % N 25-47 Monocyte % 6.0 % N 1-9 Eosinophil % 1.6 % N 0-6 Basophil % 0.2 % N 0-2 Nucleated Red Blood Cells % 0.1 N Laboratory test 04/12/2016 [facility] Rapid Influenza SEE RESULT 56 finding A & B Antigen BELOW Rapid Influenza A 04/12/2016 [facility] Influenza A NEGATIVE N Negative 57 & B Molecular Molecular Influenza B Molecular NEGATIVE N Negative Urine Microalbumin 12/05/2015 [facility] Urine Creatinine 73.90 mg/dL N Random Ur Microalbumin (mg/L) < 15.0 mg/L N Urine Microalbumin/Creatinine TNP ug/mg N <31 58 Laboratory test 12/05/2015 [facility] Vitamin D Total 31.9 ng/mL N 30 -50 59 finding 25(Oh) Magnesium 2.1 mg/dL N 1.9-2.7 60 Laboratory test 12/05/2015 [facility] CRP High Sensitivity 4.17 mg/L N 61 finding TSH (Thyroid Stim Horm) 0.91 mcIU/mL N 0.34-5.60 62 Uric Acid 8.0 mg/dL High 2.3-6.6 63 Lipid Profile 12/05/2015 [facility] Triglycerides 205 mg/dL N 64 (Trig/Chol/HDL) Cholesterol 210 mg/dL N 65 HDL Cholesterol 36.6 mg/dL N 66 LDL Cholesterol 132 mg/dL N 67 Laboratory test 12/05/2015 [facility] Hemoglobin A1c 6.0 % N Less than 68 finding (Glyco HGB) 6.0 Comp Metabolic 12/05/2015 [facility] Sodium 140 mmol/L N 133-145 Panel Potassium 4.0 mmol/L N 3.5-5.0 Chloride 109 mmol/L N 101-111 Co2 Carbon Dioxide 23 mmol/L N 22-32 Anion Gap 8 mmol/L N 2-11 Glucose 91 mg/dL N 70-100 Blood Urea Nitrogen 13 mg/dL N 6-24 Creatinine 1.14 mg/dL High 0.51-0.95 BUN/Creatinine Ratio 11.4 N 8-20 Calcium 10.0 mg/dL N 8.6-10.3 Total Protein 6.6 g/dL N 6.4-8.9 Albumin 3.8 g/dL N 3.2-5.2 Globulin 2.8 g/dL N 2-4 Albumin/Globulin Ratio 1.4 N 1-3 Total Bilirubin 0.40 mg/dL N 0.2-1.0 Alkaline Phosphatase 84 U/L N 34-104 Alt 36 U/L N 7-52 Ast 35 U/L N 13-39 Egfr Non- 47.4 N >60 Egfr 61.0 N >60 69 CBC Auto Diff 12/05/2015 [facility] White Blood Count 8.5 10^3/uL N 3.5-10.8 Red Blood Count 4.80 10^6/uL N 4.0-5.4 Hemoglobin 14.4 g/dL N 12.0-16.0 Hematocrit 44 % N 35-47 Mean Corpuscular Volume 91 fL N 80-97 Mean Corpuscular Hemoglobin 30 pg N 27-31 Mean Corpuscular HGB Conc 33 g/dL N 31-36 Red Cell Distribution Width 14 % N 10.5-15 Platelet Count 161 10^3/uL N 150-450 Mean Platelet Volume 11 um3 High 7.4-10.4 Abs Neutrophils 4.9 10^3/uL N 1.5-7.7 Abs Lymphocytes 2.6 10^3/uL N 1.0-4.8 Abs Monocytes 0.6 10^3/uL N 0-0.8 Abs Eosinophils 0.3 10^3/uL N 0-0.6 Abs Basophils 0.1 10^3/uL N 0-0.2 Abs Nucleated RBC 0 10^3/uL N Granulocyte % 57.9 % N 38-83 Lymphocyte % 30.6 % N 25-47 Monocyte % 6.7 % N 1-9 Eosinophil % 3.5 % N 0-6 Basophil % 1.3 % N 0-2 Nucleated Red Blood Cells % 0.1 N Laboratory test 03/25/2015 [facility] TSH (Thyroid 1.66 ?IU/mL N 0.34 -5.60 finding Stim Horm) Free T4 (Free Thyroxine) 0.84 ng/mL N 0.61-1.12 Kathia (Antinuclear Antibodies) Negative N Negative Rheumatoid Factor <15 IU/mL N <15 70 Lipid Profile 03/25/2015 [facility] Triglycerides 201 mg/dL N 71 (Trig/Chol/HDL) Cholesterol 201 mg/dL N 72 HDL Cholesterol 29.9 mg/dL N 73 LDL Cholesterol 131 mg/dL N 74 Laboratory test 03/25/2015 [facility] CRP High Sensitivity 3.59 mg/L N 75 finding Erythrocyte Sed Rate 12 mm/Hr N 0-40 Hemoglobin A1c (Glyco HGB) 6.4 % High Less than 6.0 76 Comp Metabolic Panel 03/25/2015 [facility] Sodium 139 mmol/L N 133- 145 Potassium 3.9 mmol/L N 3.5-5.0 Chloride 105 mmol/L N 101-111 Co2 Carbon Dioxide 29 mmol/L N 22-32 Anion Gap 5 mmol/L N 2-11 Glucose 80 mg/dL N 70-100 Blood Urea Nitrogen 11 mg/dL N 6-24 Creatinine 1.15 mg/dL High 0.51-0.95 BUN/Creatinine Ratio 9.6 N 8-20 Calcium 9.5 mg/dL N 8.6-10.3 Total Protein 6.9 g/dL N 6.4-8.9 Albumin 4.3 g/dL N 3.2-5.2 Globulin 2.6 g/dL N 2-4 Albumin/Globulin Ratio 1.7 N 1-3 Total Bilirubin 0.50 mg/dL N 0.2-1.0 Alkaline Phosphatase 82 U/L N 34-104 Alt 43 U/L N 7-52 Ast 30 U/L N 13-39 Egfr Non- 47.1 N >60 Egfr 60.5 N >60 77 CBC Auto Diff 03/25/2015 [facility] White Blood Count 8.1 10^3/uL N 3.5-10.8 Red Blood Count 4.66 10^6/uL N 4.0-5.4 Hemoglobin 14.3 g/dL N 12.0-16.0 Hematocrit 44 % N 35-47 Mean Corpuscular Volume 95 fL N 80-97 Mean Corpuscular Hemoglobin 31 pg N 27-31 Mean Corpuscular HGB Conc 33 g/dL N 31-36 Red Cell Distribution Width 13 % N 10.5-15 Platelet Count 170 10^3/uL N 150-450 Mean Platelet Volume 11 um3 High 7.4-10.4 Abs Neutrophils 4.3 10^3/uL N 1.5-7.7 Abs Lymphocytes 2.8 10^3/uL N 1.0-4.8 Abs Monocytes 0.5 10^3/uL N 0-0.8 Abs Eosinophils 0.3 10^3/uL N 0-0.6 Abs Basophils 0.1 10^3/uL N 0-0.2 Abs Nucleated RBC 0 10^3/uL N Granulocyte % 53.8 % N 38-83 Lymphocyte % 34.6 % N 25-47 Monocyte % 6.3 % N 1-9 Eosinophil % 3.6 % N 0-6 Basophil % 1.7 % N 0-2 Nucleated Red Blood Cells % 0 N Laboratory test finding 03/25/2015 [facility] Magnesium 2.1 mg/dL N 1.9-2.7 1 NORMAL KIDNEY FUNCTION OR MILD DISEASE - GFR >OR=60 CHRONIC KIDNEY DISEASE - GFR 15 - 59 RENAL FAILURE - GFR <15 Est. GFR calculation based on the MDRD study equation, which assumes a steady state for creatinine. Est. GFR should not be used for medication dosing. 2 PER NCEP ATP III GUIDELINES: RESULTS LOWER THAN 40 MG/DL ARE SUGGESTIVE OF INCREASED RISK FOR CORONARY ARTERY DISEASE. RESULTS > OR=TO 60 MG/DL ARE CONSIDERED A NEGATIVE RISK FACTOR. 3 INTERPRETATION OF CHOL-HDL RATIO CHD RISK FEMALE MALE VERY HIGH >8.3 >14.3 HIGH 5.6- 8.3 6.7- 14.3 AVERAGE 3.7- 5.6 4.0- 6.7 BELOW AVERAGE 2.5- 3.7 2.7- 4.0 PROTECTED <2.5 <2.7 4 PER NCEP ATP III GUIDELINES: OPTIMAL < 100 NEAR OPTIMAL 100 - 129 BORDERLINE HIGH 130 - 159 HIGH 160 - 189 VERY HIGH > 189 5 Performed using Siemens [place] immunoassay. Care must be taken when interpreting HbA1c results in patients with a hemoglobin variant or decreased erythrocyte lifespan. Values 5.7 - 6.4% suggest prediabetes. Values >=6.5% are diagnostic for diabetes. REFERENCE: DIABETES CARE 2018: 41(S13-S27). 6 A REVIEW OF THE LITERATURE SUGGESTS THE FOLLOWING RANGES FOR THE CLASSIFICATION OF 25-OH VITAMIN D STATUS: VITAMIN D STATUS 25-OH VITAMIN D DEFICIENCY <20 NG/ML INSUFFICIENCY 20-30 NG/ML SUFFICIENCY 31 - 100 NG/ML TOXICITY > 100 NG/ML A PEDIATRIC REFERENCE RANGE HAS NOT BEEN ESTABLISHED USING THIS METHOD. 7 Design Lead: [id number] SEPSIS, CAP 9 Note: Persistent reduction for 3 months or more in an eGFR <60 mL/min/1.73 m2 defines CKD. Patients with eGFR values >/=60 mL/min/1.73 m2 may also have CKD if evidence of persistent proteinuria is present. The original MDRD equation for estimated GFR is not valid for patients less than 18 years of age. Additional information may be found at [email or web address]. 10 Note: Persistent reduction for 3 months or more in an eGFR <60 mL/min/1.73 m2 defines CKD. Patients with eGFR values >/=60 mL/min/1.73 m2 may also have CKD if evidence of persistent proteinuria is present. The original MDRD equation for estimated GFR is not valid for patients less than 18 years of age. Additional information may be found at www.[email or web address]. 11 NO GROWTH: FINAL REPORT 12 NO GROWTH: FINAL REPORT 13 COUGHING HARD,SHOULDERS HURTS,NO STRENGTH 14 Please Note: A POSITIVE result for influenza [...] influenza A and B molecular assay. Method: BD Veritor Chromatographic immunoassay 15 SEPSIS, CAP 16 NO GROWTH: FINAL REPORT 17 NO GROWTH: FINAL REPORT 18 [employer] standards require a culture to be performed on CSF specimens submitted for bacterial antigen testing. (CAP [id number]) Urine specimens will not be cultured. Performed at: [address] [id number] Machine Operator Assistant: Dustin Terry MD, Phone: [phone] 19 MIXED URETHRAL ROSALINDA 20 10,000 - 50,000 CFU/mL 21 Presumptive negative for L. pneumophila serogroup 1 antigen in urine, suggesting no recent or current infection. Legionnaires' disease cannot be ruled out since other serogroups and species may also cause disease. 22 No Legionella species isolated. Performed at: [facility] [id number] Machine Operator Assistant: Norma Camara MD, Phone: [phone] 23 Specimen slightly Hemolyzed, interpret with caution 24 Because ethnic data is not always readily [...] 15-29 5 Kidney failure <15 (or dialysis) 25 Therapeutic target for the treatment of diabetes mellitus patients is <7% HBA1C, and in selective patients <6.0%. Please refer to [place] [employer] diabetic care guidelines for further information. 26 [id number] 27 Desirable: <150 Borderline High: 150-199 High: 200-499 Very High: >500 28 Desirable: <200 Borderline High: 200-239 High: >239 29 Low: <40 Desirable: 40-60 High: >60 30 Desirable: <100 Near Optimal: 100-129 Borderline High: 130-159 High: 160-189 Very High: >189 31 Left Shift 32 [id number] 34 Desirable: <150 Borderline High: 150-199 High: 200-499 Very High: >500 35 Desirable: <200 Borderline High: 200-239 High: >239 36 Low: <40 Desirable: 40-60 High: >60 37 Desirable: <100 Near Optimal: 100-129 Borderline High: 130-159 High: 160-189 Very High: >189 38 Therapeutic target for the treatment of diabetes mellitus patients is <7% HBA1C, and in selective patients <6.0%. Please refer to [place] [employer] diabetic care guidelines for further information. 39 [id number] 40 Because ethnic data is not always readily [...] 15-29 5 Kidney failure <15 (or dialysis) 41 REFERENCE VALUE <=1.0 (Negative) 42 REFERENCE VALUE <20.0 (Negative) 43 Tests for antibodies to dsDNA and BRIEN antigens are not performed automatically unless the KATHIA result is > or= 3.0 U. Studies performed at [facility] indicate that positive KATHIA results <3.0 U are rarely accompanied by positive second order tests. Test Performed by: [place] [address] 44 Test Performed by: [facility] [place] [address] 45 Serologic response to B. burgdorferi infection is not detected, but cannot rule out early infection during which low or undetectable antibody levels to B. burgdorferi may be present. If clinically indicated, a new serum specimen should be submitted in 7-14 days. Test Performed by: [place] [address] 46 RESULT: Results suggest past infection. ADDITIONAL INFORMATION [...] primary infection with EBV. Test Performed by: [facility] [address] [place] [address] 47 [id number] Desirable <150 Borderline high 150-199 High 200-499 Very High >500 49 Desirable <200 Borderline high 200-239 High >239 50 Low <40 Desirable: 40-60 High: >60 51 Desirable: <100 mg/dL Near Optimal: 100-129 mg/dL Borderline High: 130-159 mg/dL High: 160-189 mg/dL Very High: >189 mg/dL 52 Therapeutic target for the treatment of diabetes Mellitus patients is <7% HBA1C, and in selective patients <6.0%.Please refer to [place] [employer] Diabetic care guidelines for further information. 53 [id number] 55 Because ethnic data is not always readily [...] 15-29 5 Kidney failure <15 (or dialysis) 56 SEE RESULT BELOW Name: EVE BUCKLEY : [address]: Rogerio Mccormick [facility] Acct: [id number] Unit: [id number] AGE: 70 Location: [facility] Re04/12/16 SEX: F Status: REG REF SPEC: [id number] CASEY: 04/12/16-[address] [facility] [address]: Rogerio Mccormick [facility] REQ: [id number] RECD: 04/12/16-1259 STATUS: COMP _ SOURCE: NASAL SPDESC: ORDERED: Flu A B Request COMMENTS: [id number] Procedure Result Reported Site Rapid Influenza A B Request Final 04/12/16- 1323 ML Specimen received for Influenza A/B Molecular testing * ML - MAIN LAB ([facility]) . END OF REPORT * ML=Testing performed at Main Lab DEPARTMENT OF PATHOLOGY, [address] [place] [address] Edmond Falcon M.D. Director [facility] # [id number] 57 Design Lead: JESSIKA MIMS 58 Unable to calculate due to low microalbumin 59 [facility] [address] 60 [facility] [address] 61 Low risk: <1.00 Average risk: 1.00-3.00 High risk: >3.00 62 [facility] [id number] 63 [facility] [address] 64 Desirable <150 Borderline high 150-199 High 200-499 Very High >500 65 Desirable <200 Borderline high 200-239 High >239 66 Low <40 Desirable: 40-60 High: >60 67 Desirable: <100 mg/dL Near Optimal: 100-129 mg/dL Borderline High: 130-159 mg/dL High: 160-189 mg/dL Very High: >189 mg/dL 68 Therapeutic target for the treatment of diabetes Mellitus patients is <7% HBA1C, and in selective patients <6.0%.Please refer to [place] [employer] Diabetic care guidelines for further information. 69 Because ethnic data is not always readily [...] 15-29 5 Kidney failure <15 (or dialysis) 70 Test Performed by: [address] [address] Feeder Operator: Dustin Austin II, M.D., Ph.D. 71 Desirable <150 Borderline high 150-199 High 200-499 Very High >500 72 Desirable <200 Borderline high 200-239 High >239 73 Low <40 Desirable: 40-60 High: >60 74 Desirable: <100 mg/dL Near Optimal: 100-129 mg/dL Borderline High: 130-159 mg/dL High: 160-189 mg/dL Very High: >189 mg/dL 75 Low risk: <1.00 Average risk: 1.00-3.00 High risk: >3.00 76 Therapeutic target for the treatment of diabetes Mellitus patients is <7% HBA1C, and in selective patients <6.0%.Please refer to [place] [employer] Diabetic care guidelines for further information. 77 Because ethnic data is not always readily [...] (or dialysis) Procedures Date Code Description Status 04/13/2018 38841 Ear Irrigation Completed 04/13/2018 33880 Destruction Flat Wart,Molluscum Contagiosum, Or Milia Up Completed To 14 02/28/2018 31627 EKG Completed 07/18/2017 44185 Ear Irrigation Completed 02/22/2017 25807 Destruction Flat Wart,Molluscum Contagiosum, Or Milia Up Completed To 14 08/20/2016 21477 EKG Completed 08/13/2016 55589 Spirometry Completed 03/16/2016 23111 EKG Completed 03/16/2016 56464 Collection Of Capillary Blood Specimen Completed 03/12/2016 37188 Spirometry Completed 05/19/2015 38613 EKG Completed 05/06/2015 20738 Tympanometry Completed 05/06/2015 09780 Spirometry Completed 05/06/2015 26038 Spirometry Before/After Brochodilator Completed 05/06/2015 88068 Nebulizer-Ippb Treatment Completed 05/06/2015 15895 Injection DX/Therapeutic/Prophy Completed 04/24/2015 17463 Spirometry Completed 04/24/2015 31840 Tympanometry Completed 04/01/2015 22422 Spirometry Completed 04/01/2015 87979 Tympanometry Completed 03/18/2015 34297 Visual Screening Test Completed 03/18/2015 11885 EKG Completed 03/18/2015 36626 Audiometry, Bekesy, Screening Completed 03/25/2005 96840 Nail Avulsion Partial Or Complete,Simple Single Completed Encounters Type Date Location Provider Dx Diagnosis Office Visit 04/13/2018 [facility] Lester Yueivon Coffman, E11.65 Type 2 diabetes 1:15p M.D. mellitus with hyperglycemia I10 Essential (primary) [...] wart, unspecified M79.671 Pain in right foot H61.20 Impacted cerumen, unspecified ear Office Visit 02/28/2018 2:30p [facility] Lester Juanasya E11.65 Type 2 diabetes Elaina Coffman. mellitus with hyperglycemia I10 Essential (primary) hypertension E78.2 Mixed hyperlipidemia J44.9 Chronic obstructive pulmonary disease, unspecified K51.918 Ulcerative colitis, unspecified with other complication K30 Functional dyspepsia F33.9 Major depressive disorder, recurrent, unspecified K58.0 Irritable bowel syndrome with diarrhea G43.119 Migraine with aura, intractable, without status migrainosus F17.210 Nicotine dependence, cigarettes, uncomplicated Z68.22 Body mass index (BMI) 22.0-22.9, adult H52.4 Presbyopia M25.512 Pain in left [...] wart, unspecified M79.671 Pain in right foot Z00.01 Encounter for general adult medical exam w abnormal findings Office Visit 02/16/2018 9:30a [facility] LesterJuanasya E11.65 Type 2 diabetes Abril Coffman mellitus [...] wart, unspecified M79.671 Pain in right foot Office Visit 01/10/2018 2:15p [facility] Kostas Batista E11.65 Type 2 diabetes [...] Encounter for immunization Office Visit 12/06/2017 1:00p [facility] Kostas Batista E11.65 Type 2 diabetes [...] forearm, initial encounter Office Visit 12/01/2017 1:15p [facility] Kostas Batista E11.65 Type 2 diabetes [...] Chest pain, unspecified Office Visit 09/15/2017 4:45p [facility] Kostas Batista E11.65 Type 2 diabetes [...] unspecified R11.0 Nausea Office Visit 07/18/2017 9:30a [facility] Kostas Batista E11.65 Type 2 diabetes [...] cerumen, unspecified ear Office Visit 06/29/2017 11:15a [facility] Kostas Batista E11.65 Type 2 diabetes [...] Pneumonia, unspecified organism Office Visit 06/21/2017 1:00p [facility] Kostas Batista E11.65 Type 2 diabetes [...] Pneumonia, unspecified organism Office Visit 05/27/2017 10:00a [facility] E11.65 Type 2 diabetes Elaina Coffman. mellitus [...] unspecified R11.0 Nausea Office Visit 05/18/2017 8:45a [facility] E11.65 Type 2 diabetes Abril Coffman mellitus [...] Acute pansinusitis, unspecified Office Visit 05/10/2017 11:15a [facility] Kostas Batista E11.65 Type 2 diabetes [...] Acute pansinusitis, unspecified Office Visit 04/19/2017 9:15a [facility] Kostas Batista E11.65 Type 2 diabetes [...] unspecified R11.0 Nausea Office Visit 03/10/2017 2:30p [facility] Type 2 diabetes Abril Coffman mellitus [...] Viral wart, unspecified Office Visit 02/25/2017 8:30a [facility] E11.65 Type 2 diabetes Abril Coffman mellitus [...] D deficiency, unspecified Office Visit 02/22/2017 3:15p [facility] Lester Juanasya E11.65 Type 2 diabetes Abril Coffman [...] Viral wart, unspecified Office Visit 12/23/2016 10:45a [facility] Kostas Batista E11.65 Type 2 diabetes [...] Encounter for immunization Office Visit 10/21/2016 2:00p [facility] Kostas Batista E11.65 Type 2 diabetes [...] sites in spine Office Visit 08/24/2016 8:45a [facility] LesterKostas mariscal E11.65 Type 2 diabetes [...] R53.83 Other fatigue Office Visit 08/20/2016 9:00a [facility] Kostas Batista E11.65 Type 2 diabetes [...] R53.83 Other fatigue Office Visit 08/19/2016 9:15a [facility] Kostas Batista E11.65 Type 2 diabetes [...] elbow R06.2 Wheezing Office Visit 08/13/2016 9:15a [facility] Kostas Batista E11.65 Type 2 diabetes [...] elbow R06.2 Wheezing Office Visit 05/18/2016 11:15a [facility] Kostas Batista J20.9 Acute bronchitisAugustus M.D. [...] Allergic rhinitis, unspecified Office Visit 04/12/2016 9:45a [facility] Rogerio Mccormick B34.9 Viral infection, ROOF BOLTER unspecified J01.80 Other acute sinusitis R06.2 Wheezing F17.210 Nicotine dependence, cigarettes, uncomplicated Office Visit 03/16/2016 1:45p [facility] Kostas Batista E11.65 Type 2 diabetes [...] stomatitis R53.1 Weakness Office Visit 03/12/2016 2:15p [facility] Kostas Batista E11.65 Type 2 diabetes [...] Allergic rhinitis, unspecified Office Visit 02/27/2016 4:30p [facility] Kostas Batista E11.65 Type 2 diabetes [...] media, unspecified, bilateral Office Visit 01/02/2016 3:30p [facility] LesterKostas mariscal E11.65 Type 2 diabetes [...] disease with esophagitis Office Visit 12/05/2015 8:45a [facility] Kostas Batista I10 Juan Daniel ( [...] mellitus with hyperglycemia Office Visit 10/23/2015 3:15p [facility] Kostas Batista I10 Essential ( primary) [...] mellitus with hyperglycemia Office Visit 08/13/2015 2:30p [facility] Kostas Batista I10 Essential ( primary) [...] mellitus with hyperglycemia Office Visit 05/19/2015 10:45a [facility] Rogerio Mccormick K21.0 Gastro- esophageal ROOF BOLTER reflux disease with esophagitis R13.10 Dysphagia, unspecified I10 Essential (primary) hypertension E78.2 Mixed hyperlipidemia K30 Functional dyspepsia F33.9 Major depressive disorder, recurrent, unspecified R07.89 Other chest pain Office Visit 05/06/2015 2:30p [facility] Kostas Batista H66.93 Otitis mediaAugustus M.D. unspecified, bilateral J01.40 Acute pansinusitis, unspecified [...] in unspecified knee Office Visit 04/24/2015 10:45a [facility] Lester, Yueivon H66.93 Otitis mediaAugustus MBernardinoD. unspecified, bilateral J01.40 Acute pansinusitis, unspecified J20.9 [...] R09.81 Nasal congestion Office Visit 04/10/2015 11:45a [facility] Kostas Batista B37.0 Candidal stomatitis Abril [...] R09.81 Nasal congestion Office Visit 04/01/2015 9:15a [facility] LesterKostas mariscal I10 Essential ( primary) Abril Coffman hypertension [...] R09.81 Nasal congestion Office Visit 03/25/2015 8:45a [facility] Kostas Batista I10 Essential ( primary) Abril [...] Encounter for immunization Office Visit 03/18/2015 2:30p [facility] Kostas Batista I10 Essential ( primary) [...] Sensorineural hearing loss, bilateral Plan of Treatment 04/13/2018 - Kostas Batista M.D.E11.65 Type 2 diabetes mellitus with hyperglycemiaComments:DIET REVIEWED CONTINUE DIETWT LOSSF/U LAB FS qAC AND HS PRN F/U FBWI10 Essential (primary) hypertensionComments:CHECK BP TIW ( PRN)F/U LABDIET AND FLUID COUNSELING LOW SODIUM DIETWT LOSSF/U LABSMOKING/TOBACCO ABUSE UYOEICILTC08.2 Mixed hyperlipidemiaComments:DIET REVIEWED CONTINUE DIETWT LOSSF/U LAB FBWJ44.9 Chronic obstructive pulmonary disease, unspecifiedComments: INCREASE PO FLUIDRESTSMOKING CESSATION COUNCELLING NEB OR MDI AND /OR XEIQLLQ40.918 Ulcerative colitis, unspecified with other complicationComments:F/ U WITH GIK30 Functional dyspepsiaComments:AVOID CAFFEINE, ETOH AND SPICY FOODSTUMS OR MYLANTA PRN CALL WITH PROBLEMS OR CONCERNSSMOKING GEOIUADTNV79.9 Major depressive disorder, recurrent, unspecifiedComments:COUNCELLING AND REASSURANCE RELAXATION TECHNIQUES DISCUSSED COUNSELED RE: STRESSORS IN LIFEK58.0 Irritable bowel syndrome with diarrheaComments:TYLENOL OR MOTRIN PRNINCREASE PO FLUIDLAXATIVE PRN F/U DIRECTEDF/U GMRZTEPPQ67.119 Migraine with aura, intractable, without status migrainosusComments:COUNCELLING AND REASSURANCE F/U WITH NEUROLOGY PRNF17.210 Nicotine dependence, cigarettes, uncomplicatedComments:SMOKING CESSATION MPQLKRUIZERD93.4 PresbyopiaComments:USE GLASSES/CONTACTSF/U WITH GKCGOIHUGPHCNJ50.512 Pain in left shoulderComments: EXERCISE/HEAT /MESSAGE AVOID HEAVY LIFTINGTYLENOL OR MOTRIN PRN DUR HSYZXWSA85.522 Pain in left elbowComments:EXERCISE/HEAT/MESSAGE TYLENOL OR MOTRIN PRNAVOID HEAVY LIFTING VICKY WRAP PRNELEVATE PRNM25.531 Pain in right djhtvZ54.645 Pain in left finger(s)Comments:EXERCISE/HEAT/MESSAGE TYLENOL OR MOTRIN PRNAVOID HEAVY LIFTING VICKY WRAP PRNELEVATE PRN DUR DCTQWKOG22.5 Low back painComments:EXERCISE/HEAT /MESSAGEAVOID HEAVY LIFTING WT LOSSTYLENOL OR MOTRIN PRN DUR EPLOHIZK89.9 Atopic dermatitis, unspecifiedComments:SKIN CARE INSTRUCTIONS LOTION OR BABY OIL 2-3 APPLICATION PER DAYUSE MOISTURIZING SOAPAVOID PROLONGED WATER EXPOSUREAVOID USING HOT WATER IN GFCXTDL96.00 Insomnia , unspecifiedComments:COUNCELLING AND REASSURANCE RELAXATION TECHNIQUES DISCUSSED COUNSELED RE: STRESSORS IN LIFE TYLENOLPM OR MOTRIN PM PRNF41.9 Anxiety disorder, unspecifiedComments:COUNCELLING AND REASSURANCE RELAXATION TECHNIQUES DISCUSSEDCOUNSELED RE: STRESSORS IN LIFE AVOID ALLENERGY/HIGH CAFFEINE XPFNJMW25.3 Sensorineural hearing loss, bilateralComments:OBSERVE F/U WITH ENT PRNM25.551 Pain in right hipComments:EXERCISE/HEAT/MESSAGETYLENOL OR MOTRIN PRNAVOID HEAVY LIFTINGWT LOSS DUR [id number] CoughComments:INCREASE CLEAR LIQUIDSSTEAMGARGLE WARM SALT H2O TID ROBITUSSIN DM PRN SMOKING CESSATION KVGHVWWZQYCX90.81 Nasal congestionComments:INCREASE PO FLUIDTYLENOL OR MOTRIN PRNREST USE ANTIHISTAMINE PRN SMOKING CESSATION MHPAKLDTGRRK31.02 Shortness of breathComments:NEB OR MDI AND /OR OXYGENINCREASE PO FLUIDRESTSMOKING TSSTCCOZPH11.606 Pain in leg, unspecifiedComments:TYLENOL OR MOTRIN PRN EXERCISE/HEAT/MESSAGE DUR FMFTBOYR84.569 Pain in unspecified kneeComments:EXERCISE/HEAT /MESSAGEAVOID HEAVY LIFTING WT LOSSTYLENOL OR MOTRIN PRN DUR IPWYRSGJ41.0 Gastro-esophageal reflux disease with esophagitisComments: AVOID CAFFEINE, ETOH AND SPICY FOODSTUMS OR MYLANTA PRN CALL WITH PROBLEMS OR CONCERNSSMOKING OSDEBXLZRS98.9 Allergic rhinitis, unspecifiedComments:INCREASE PO FLUID USE ANTIHISTAMINE PRN SECOND HAND SMOKING AVOIDANCE SMOKING VYCMVTTTDT94.529 Pain in unspecified elbowComments:EXERCISE/HEAT/MESSAGE TYLENOL OR MOTRIN PRNAVOID HEAVY LIFTING VICKY WRAP PRNELEVATE PRN DUR SGRJARSS22.2 WheezingComments:INCREASE CLEAR LIQUIDSSTEAMGARGLE WARM SALT H2O TID MDI/NEB.[place] PRNSMOKING FDYUZFJXLP54.83 Other fatigueComments:INCRFEASE PO FLUIDCOUNCELLING AND REASSURANCE RESTM45.0 Ankylosing spondylitis of multiple sites in spineComments:EXERCISE/HEAT/MESSAGETYLENOL OR MOTRIN PRNF/U WITH REHUMATOLOGY PRNDUR MIWCCHSI50.7 FibromyalgiaComments:EXERCISE/HEAT/ MESSAGETYLENOL OR MOTRIN PRNF/U WITH REHUMATOLOGY PRNDUR REPBHJKS33.9 Vitamin D deficiency, unspecifiedComments:INCREASE EXPOSURE TO SUNREVIEW OF DIETM54.2 CervicalgiaComments:EXERCISE/HEAT /MESSAGEAVOID HEAVY LIFTING WT LOSSTYLENOL OR MOTRIN PRN DUR DASDTWRN21.30 Lower abdominal pain, unspecifiedComments: TYLENOL OR MOTRIN PRNINCREASE PO FLUIDLAXATIVE PRN F/U DIRECTEDF/U DIRECTED RESOLVED @ THIS TIMEK59.00 Constipation, unspecifiedComments:MOM OR MIRALAX PRNHIGH FIBER DIETINCREASE PO FLUID MOM OR MIRALAX PRNHIGH FIBER DIETINCREASE PO YOESNT32.0 NauseaComments:INCREASE PO FLUID SMALL SIPS OF FLUIDS AT A TIME SMALL FREQUENT MEALS F/U DIRECTED CALL IF YOU HAVE VOMITING OR WITH S/S OF DEXPDJDZEDDY58.9 Viral wart, unspecifiedComments:TX WITH CRYOTHERAPY SKIN/WOUND CARE TTAFYSRUQYUZ63.671 Pain in right footComments: EXERCISE/HEAT/MESSAGETYLENOL OR MOTRIN PRNACE WRAP PRN USE SHOES INSERTS/ CUSHIONDUR WYCMSLYO43.20 Impacted cerumen, unspecified earComments:WAX IRRIGATION DONE EAR HYGEINE DISSCUSSED IN DETAIL
[2018-05-06 07:53] VITALS: BP 135/88
--- NOTE | 2018-05-06 08:41 | UC ---
Skin Complaint HPI - HPI Summary HPI Summary: Patient complaining of a itchy rash on the right side of her abdomen. - History of Current Complaint Chief Complaint: UCSkin Time Seen by Provider: 05/06/18 08:25 Stated Complaint: SKIN COMPLAINT Hx Obtained From: Patient ?: No Onset/Duration: Sudden Onset, Lasting Days Skin Exposure Onset/Duration: Days Ago Timing: Constant Onset Severity: Mild Current Severity: None Pain Intensity: 0 Character: Pruritus, Painful Associated Signs & Symptoms: Positive: Rash - Allergy/Home Medications Allergies/Adverse Reactions: Allergies Allergy/AdvReac Type Severity Reaction Status Date / Time azithromycin AdvReac Intermediate GI Upset Verified 05/06/18 07:54 varenicline [From Chantix] AdvReac Intermediate GI Upset Verified 05/06/18 07:54 PMH/Surg Hx/FS Hx/Imm Hx Previously Healthy: Yes - Surgical History Surgical History: Yes Surgery Procedure, Year, and Place: colon surgeries a total 14 r/t cancer, bowel obstructions. caleb, hysterectomy - Family History Known Family History: Positive: Cardiac Disease, Hypertension - Social History Alcohol Use: None Substance Use Type: None Smoking Status (MU): Heavy Every Day Tobacco Smoker Type: Cigarettes Amount Used/How Often: 1 PPD Length of Time of Smoking/Using Tobacco: 44 Years Have You Smoked in the Last Year: Yes Household Exposure Type: Cigarettes - Immunization History Most Recent Influenza Vaccination: january 2018 Most Recent Tetanus Shot: ~2008 Most Recent Pneumonia Vaccination: February 2014 Vaccination Up to Date: Yes Review of Systems All Other Systems Reviewed And Are Negative: Yes Constitutional: Positive: Negative Skin: Positive: Rash Eyes: Positive: Negative ENT: Positive: Negative Respiratory: Positive: Negative Cardiovascular: Positive: Negative Gastrointestinal: Positive: Negative Genitourinary: Positive: Negative Motor: Positive: Negative Neurovascular: Positive: Negative Musculoskeletal: Positive: Negative Neurological: Positive: Negative Psychological: Positive: Negative Is Patient Immunocompromised?: No Physical Exam Triage Information Reviewed: Yes Appearance: Well-Appearing, Well-Nourished, Pain Distress Vital Signs: Initial Vital Signs Temp 97.6 F 05/06/18 07:51 Pulse 80 05/06/18 07:51 Resp 18 05/06/18 07:51 BP 135/88 05/06/18 07:51 Pulse Ox 98 05/06/18 07:51 Vital Signs Reviewed: Yes Eye Exam: Normal ENT Exam: Normal Dental Exam: Normal Neck exam: Normal Respiratory Exam: Normal Respiratory: Positive: Chest non-tender, Lungs clear, Normal breath sounds Cardiovascular Exam: Normal Cardiovascular: Positive: RRR, No Murmur, Pulses Normal Abdominal Exam: Normal Abdomen Description: Positive: Nontender, No Organomegaly, Soft Bowel Sounds: Positive: Present Musculoskeletal Exam: Normal Neurological Exam: Normal Psychological Exam: Normal Skin: Positive: Rashes - red, painful and only along the right side of the abdomen Course/Dx - Diagnoses Provider Diagnosis: Shingles Discharge - Sign-Out/Discharge Documenting (check all that apply): Patient Departure All imaging exams completed and their final reports reviewed: No Studies - Discharge Plan Condition: Stable Disposition: HOME Prescriptions: ValACYclovir (*) [Valtrex 1 GM(*)] 1 gm PO BID #14 tab Patient Education Materials: Shingles (ED) Referrals: Kostas Batista MD [Primary Care Provider] - Additional Instructions: 1. take the medication as prescribed. 2. YOu can continue with hydrocortisone, calamine, and ice to help with itching. do not itch 3. Ibuprofen or tylenol for pain. - Billing Disposition and Condition Condition: STABLE Disposition: Home - Attestation Statements Provider Attestation: I was available for consult. This patient was seen by the ED. The patient was not presented to, seen by, or examined by me. EK
== END 2018-05-06 08:37 | disposition home or self-care (01) ==
LOC: UCCORT 07:44
DX: B02.9 Zoster without complications (principal); F17.210 Nicotine dependence, cigarettes, uncomplicated; Z88.1 Allergy status to other antibiotic agents; Z88.8 Allergy status to other drugs, medicaments and biological substances
CPT/HCPCS: 99212; G0463